=== PATIENT | female | born 1935 | race Caucasian/White ===

== ENCOUNTER 2016-08-30 23:03 | Inpatient (IN) | payer MEDICARE, BC ==
[~2016-08-30] VITALS: Ht 162.6 cm; Wt 59.1 kg
[~2016-08-30 23:03] MED LIST: CALTRATE-600600 MG PO; CHILDREN'S ASPI81 MG PO; GLUCOSAMINE & C1 CAP PO; LEVOTHROID88 MCG PO; MULTIPLE VITAMI1 TA1 PO; VITAMIN D31000 UNIT PO
[2016-08-31] VITALS (23 sets, daily range): BP systolic 98–147; BP diastolic 52–106; Ht 162.6 cm; Wt 59.1 kg
[2016-08-31 00:08] LABS: BASOPHILS 0.1 % (0.0-2.0); EOSINOPHILS 0 % (0-7); HEMATOCRIT 37.1 % (36.0-48.0); HEMOGLOBIN 12.2 g/dL (12-16); IMMATURE GRANULOCYTES 0.3 % (0-5); LYMPHOCYTES 6.9 % (15-50); MCH 30.3 pg (26.0-34.0); MCHC 32.9 g/dL (31.0-37.0); MCV 92.3 fL (80.0-100.0); MEAN PLATELET VOLUME 12.7 fL (7.4-10.4); NEUTROPHILS 86.7 % (40-80); PLATELET COUNT 178 10x3/uL (130-400); RBC 4.02 10x6/uL (4.00-5.40); RDW 14.7 % (11.5-14.5)
[2016-08-31 00:29] LABS: ANION GAP 15.3 mmol/L (8-16); CALCIUM 9.1 mg/dL (8.5-10.1); CARBON DIOXIDE 26.9 mmol/L (21.0-32.0); CREATININE - SERUM 0.9 mg/dL (0.6-1.3); POTASSIUM - SERUM 4.2 mmol/L (3.5-5.1); TROPONIN-I 0.033 ng/mL (0.000-0.060)
[2016-08-31] MEDS ORDERED: L-LYSINE500 M1 PO (03:23)
[2016-08-31] MEDS ORDERED: ASCORBIC ACID500 MG PO (03:23)
[2016-08-31] MEDS ORDERED: BIOTIN5 MG PO (03:23)
--- NOTE | 2016-08-31 13:02 | NUR ---
Is the patient Alert and Oriented? Yes 0 * How many steps to enter\exit or inside your home? 3 0 * [facility] IN [place], [place] 0 * Preadmission Environment Home with Family 0 * ADLs Independent 0 * Equipment None 0 * List name and contact numbers for known caregivers / representatives who currently or will assist patient after discharge: SPOUSE: JACINTA (H)[phone] (C) [phone] 0 * Community resources currently utilized None 0 * Additional services required to return to the preadmission environment? No 0 * Can the patient safely return to the preadmission environment? Yes 0 * Has this patient been hospitalized within the prior 30 days at any hospital? No 0 PATIENT IS AWAKE AND ALERT. SHE STATES SHE WAS INDEPENDENT IN ALL ADL'S PRIOR TO COMING TO THE HOSPITAL. PATIENT LIVES AT HOME WITH HE , JACINTA. HE WILL BE AVAILABLE TO DRIVE HER HOME AT DISCHARGE. HER PCP IS DR. AMAN MONTEJO IN [place]. SHE GETS HER MEDS FROM [facility] IN [place]. PATIENT DENIES USE OF ANY EQUIPMENT AND DENIES EVER HAVING HOME HEALTH. PATIENT STATES THERE ARE 3 STEPS TO ENTER HER HOME. NO DISCHARGE NEEDS IDENTIFIED AT THIS TIME.
[2016-08-31 15:16] LABS: CKMB 9.5 U/L (0.0-3.6); CREATINE KINASE 334 UL (21-215)
--- NOTE | 2016-08-31 19:00 | NUR ---
RECEIVED PATIENT IN BED WITH EYES OPEN, ASSESSMENT COMPLETED PER FLOWSHEET. AO X4, PLEASANT DEMEANOR. EYES PERRLA @ 3MM WITH BRISK RESPONSE, SCLERA IS WHITE. ORAL/NASAL MUCOSA IS MOIST AND INTACT, 4L 02 VIA NC. S1/S2 NOTED WITH PATIENT NSR W/ PVC ON TELEMETRY. BREATING IS SLIGHTLY LABORED AND FAST @ 24, LUNG SOUNDS ARE DIMINISHED THROUGHOUT ALL HARMON. ABDOMEN IS ROUND AND SOFT, BOWEL SOUNDS ACTIVE X4. FRAGA SECURED IN PLACE WITH 1500ML OF PALE YELLOW URINE NOTED IN COLLECTION BAG. FULL ROM ALL EXTREMITIES, ALL PULSES PALPABLE. CAR PINCHER/PEDAL STRENGTH EQUAL AND BILATERAL, NO WEAKNESS NOTED. 20G PIV L HAND, PATENT WITH FLUIDS INFUSING. PATIENT DENIES PAIN OR OTHER NEEDS AT THIS TIME, ALL VSS AND WILL CONTINUE TO MONITOR.
--- NOTE | 2016-08-31 21:00 | NUR ---
NO VISITORS AT THIS TIME, PATIENT RESTING IN BED WITH EYES CLOSED. NSR WITH OCCAISIONAL PVC'S NOTED ON TELEMETRY, RATE OF 81. BREATHING IS SLIGHTLY LABORED "BUT IMPROVING" ACCORDING TO PATIENT, DIMINISHED LUNG SOUNDS IN ALL LOBES. PATIENT STATES THAT FRAGA IS "UNCOMFORTABLE" DISCUSSED NEED WITH PATIENT AND REPOSITIONED, PATIENT STATES RELIEF. ALL VSS AND WILL CONTINUE TO MONITOR.
--- NOTE | 2016-08-31 22:58 | NUR ---
REASSESSMENT COMPLETE PER FLOWSHEET, PATIENT RESTING IN BED WITH EYES CLOSED. BREATHING IS SHALLOW WITH DIMINISHED LUNG SOUNDS THROUGHOUT ALL LOBES, PATIENT OXYGEN SAT IS 99% ON 4L VIA N/C. PATIENT IS NSR ON TELEMETRY WITH OCCAISIONAL PVC'S, RATE IS IRREGULAR. PATIENT DENIES PAIN OR OTHER NEEDS AT THIS TIME, ALL VSS AND WILL CONTINUE TO MONITOR.
[2016-09-01] VITALS (25 sets, daily range): BP systolic 81–120; BP diastolic 53–102
--- NOTE | 2016-09-01 01:00 | NUR ---
PATIENT RESTING IN BED WITH EYES CLOSED, BREATHING IS SLIGHTLY SHALLOW. PATIENT HR 89, NSR WITH PVC'S NOTED ON TELEMETRY. DENIES PAIN OR OTHER NEEDS AT THIS TIME, ALL VSS AND WILL CONTINUE TO MONITOR.
--- NOTE | 2016-09-01 03:01 | NUR ---
REASSESSMENT COMPLETE PER FLOWSHEET, PATIENT RESTING IN BED WITH EYES CLOSED. S1/S2 NOTED WITH PATIENT NSR WITH OCCAISIONAL PVC ON TELEMETRY, RHYTHM IS IRREGULAR. BREATHING IS SLIGHTLY SHALLOW, LUNG SOUNDS DIMINISHED IN ALL LOBES. PATIENT OXYGEN SAT 99% ON 4L VIA NC. PALE YELLOW URINE NOTED IN COLLECTION BAG, NO ERYTHEMA OR IRRITATION NOTED IN PERINEAL AREA. PATIENT DENIES PAIN OR OTHER NEEDS AT THIS TIME, ALL VSS AND WILL CONTNINUE TO MONITOR.
[2016-09-01 04:53] LABS: BASOPHILS 0.1 % (0.0-2.0); EOSINOPHILS 0 % (0-7); HEMATOCRIT 36.3 % (36.0-48.0); HEMOGLOBIN 12.1 g/dL (12-16); IMMATURE GRANULOCYTES 0.4 % (0-5); LYMPHOCYTES 9.9 % (15-50); MCHC 33.3 g/dL (31.0-37.0); MEAN PLATELET VOLUME 12.9 fL (7.4-10.4); MONOCYTES 9.2 % (2-11); NEUTROPHILS 80.4 % (40-80); PLATELET COUNT 175 10x3/uL (130-400); RBC 4.03 10x6/uL (4.00-5.40); RDW 14.7 % (11.5-14.5)
[2016-09-01 05:48] LABS: ANION GAP 11.1 mmol/L (8-16); CARBON DIOXIDE 29.9 mmol/L (21.0-32.0)
[2016-09-01 05:49] LABS: MCV 90.1 fL (80.0-100.0)
--- NOTE | 2016-09-01 06:00 | NUR ---
POTASSIUM VALUE 3.0, 40 MEQ GIVEN PO PER PROTOCOL. WILL RECHECK IN 4 HRS AND WITH AM LAB.
--- NOTE | 2016-09-01 07:00 | NUR ---
PT CO FRAGA IRRITATING HER. FRAGA DCD.
--- NOTE | 2016-09-01 09:13 | NUR ---
Nutrition follow-up: Diet: low sodium PO intake poor at this time Labs reviewed Wt: 146# RDN will order Ensure with meals Following.
--- NOTE | 2016-09-01 12:33 | NUR ---
PIV RESITED TO RIGHT FOREARM, 20G X1 ATTEMPT. BLOOD RETURN AND FLUSHES EASILY.
--- NOTE | 2016-09-01 19:00 | NUR ---
RECEIVED PATIENT IN BED WITH EYES OPEN AND AT BEDSIDE, ASSESSMENT COMPLETED PER FLOWSHEET. PATIENT IS AO X4, DEMEANOR IS PLEASANT. EYES PERRLA @ 3MM WITH BRISK RESPONSE, SCLERA IS WHITE. ORAL NASAL MUCOSA IS DRY AND INTACT, PATIENT ON 4L O2 VIA NC WITH HUMIDIFIER ATTATCHED. S1/S2 NOTED WITH PATIENT NSR ON TELEMETRY WITH PVC'S, RATE IS IRREGULAR. LUNG SOUNDS ARE CLEAR BILATERAL UPPER WITH DIMINISHED LOWER, BREATHING IS EVEN BUT PATIENT BECOMES SOB UPON EXERTION. ABDOMEN IS SOFT AND ROUND, NON-TENDER TO PALPATION. PATIENT FRAGA REMOVED 09/01, PATIENT AMBULATES ON OWN TO BEDSIDE COMMODE. FULL ROM ALL EXTREMITIES WITH NO WEAKNESS NOTED, BULK DELIVERY DRIVER/PEDAL STRENGTH IS EQUAL AND BILATERAL. 20G PIV L UPPER ARM, PATENT AND SALINE LOCKED. ALL PULSES PALPABLE AND VSS. PATIENT DENIES PAIN OR OTHER NEEDS AT THIS TIME, WILL CONTINUE TO MONITOR.
--- NOTE | 2016-09-01 21:00 | NUR ---
NO VISITORS AT THIS TIME, PATIENT USED BEDSIDE COMMODE WITOUT DIFFICULTY OR ASSISSTANCE. 650ML CLEAR YELLOW URINE NOTED MIXED WITH SMALL FORMED STOOLS. PATIENT DENIES PAIN OR OTHER NEEDS AT THIS TIME, ALL VSS AND WILL CONTINUE TO MONITOR.
--- NOTE | 2016-09-01 23:00 | NUR ---
REASSESSMENT COMPLETE PER FLOWSHEET, PATIENT RESTING IN BED WITH EYES CLOSED. BREATHING IS EVEN AND UNLABORED, LUNG SOUNDS CLEAR BILATERAL UPPER WITH SLIGHTLY DIMINISHED LOWER. PATIENT IS NSR WITH PVC'S NOTED ON TELEMETRY, RATE IS IRREGULAR. PATIENT DENIES PAIN OR OTHER NEEDS AT THIS TIME, ALL VSS AND WILL CONTINUE TO MONITOR.
[2016-09-02] VITALS (12 sets, daily range): BP systolic 88–110; BP diastolic 53–90
--- NOTE | 2016-09-02 03:02 | NUR ---
REASSESSMENT COMPLETE PER FLOWSHEET, PATIENT RESTING IN BED WITH EYES OPEN. BREATHING IS EVEN AND UNLABORED, OXYGEN SAT IS 98% ON 4L VIA NC. NSR WITH OCCASIONAL PVC'S ON TELEMETRY, RATE IS IRREGULAR. PATIENT STATES SHE "FEELS BETTER THAN SHE HAS IN DAYS", AND THAT "BREATHING IS MUCH EASIER".DENIES PAIN OR OTHER NEEDS AT THIS TIME, ALL VSS AND WILL CONTINUE TO MONITOR.
--- NOTE | 2016-09-02 03:08 | NUR ---
PATIENT AMBULATED TO BEDSIDE COMMODE AND BACK TO BED WITHOUT ASSISTANCE. 520ML OF PALE YELLOW URINE NOTED IN COLLECTION BUCKET. ALL VSS AND NO FURTHER NEEDS AT THIS TIME, WILL CONTINUE TO MONITOR.
[2016-09-02 03:27] LABS: BASOPHILS 0.1 % (0.0-2.0); EOSINOPHILS 1.6 % (0-7); HEMATOCRIT 37.6 % (36.0-48.0); HEMOGLOBIN 12.2 g/dL (12-16); IMMATURE GRANULOCYTES 0.5 % (0-5); LYMPHOCYTES 15.4 % (15-50); MCH 29.8 pg (26.0-34.0); MCHC 32.4 g/dL (31.0-37.0); MCV 91.9 fL (80.0-100.0); MEAN PLATELET VOLUME 12.9 fL (7.4-10.4); MONOCYTES 12.1 % (2-11); NEUTROPHILS 70.3 % (40-80); PLATELET COUNT 175 10x3/uL (130-400); RBC 4.09 10x6/uL (4.00-5.40); RDW 14.5 % (11.5-14.5); WBC 8.6 10x3/uL (4.8-10.8)
[2016-09-02 03:33] LABS: ANION GAP 9.2 mmol/L (8-16); CALCIUM 8.3 mg/dL (8.5-10.1); CARBON DIOXIDE 32.3 mmol/L (21.0-32.0)
[2016-09-02 03:47] LABS: POTASSIUM - SERUM 3.5 mmol/L (3.5-5.1)
--- NOTE | 2016-09-02 05:00 | NUR ---
PATIENT RESTING IN BED WITH EYES CLOSED, BREATHING IS EVEN AND UNLABORED. PATIENT DENIES PAIN OR OTHER NEEDS AT THIS TIME, ALL VSS AND WILL CONTINUE TO MONITOR.
--- NOTE | 2016-09-02 07:00 | NUR ---
ASSESSMENT PER FLOWSHEET.
--- NOTE | 2016-09-02 10:56 | NUR ---
REPORT CALLED TO MED 2.
--- NOTE | 2016-09-02 11:35 | NUR ---
TRANSFER TO FLOOR.
--- NOTE | 2016-09-02 11:43 | NUR ---
REC'D PT FROM ICU. PT ARRIVE VIA W/C. ACCOMPANIED BY SPOUSE. PT A/O. WEARING O2 AT 2LITERS VIA NC. DENIES SOB. 22G IV TO LEFT HAND NOTED. NURSE STATES WAS RE-SITED TODAY, BEFORE TRANSFER. PT SKING WARM AND DRY WITHOUT SORES OR REDNESS. NO EDEMA TO LE NOTED. ORIENTED PT TO ROOM. HAT PLACED IN BATHROOM TO MONITOR PT'S URINE OUTPUT. PT SITTING UP IN CHAIR AT BED SIDE. CALL LIGHT PLACED WITH IN REACH. DENIES NEEDS AT THIS TIME. WILL CONT. TO MONITOR.
--- NOTE | 2016-09-02 12:34 | NUR ---
PT SITTING UP IN CHAIR AT BEDSIDE. VISITING WITH FAMILY. A/O. NO DISTRESS NOTED. CALL LIGHT WITH IN REACH. WILL CONT. TO MONITOR.
--- NOTE | 2016-09-02 13:59 | EC ---
PATIENT:RAUL LOCO DATE OF SERVICE: 08/31/16 SEX: F MEDICAL RECORD: [id number] DATE OF : 37 LOCATION:D.M2 D.213 AGE OF PATIENT: 80 ADMISSION DATE: 08/31/16 REFERRING PHYSICIAN: INTERPRETING PHYSICIAN: [place] HSU MD ECHOCARDIOGRAM REPORT ECHO CHARGES 4 ECHO COMPLETE CLINICAL DIAGNOSIS: ELEVATED BNP/PROTIME ECHOCARDIOGRAPHIC MEASUREMENTS (adult normal given) AC root (d.<3.7cm) 3.1 LV Septum d (<1.2 cm> 1.2 Valve Excursion 1.7 LV Septum (systole) 1.4 Left Atria (s.<4.0cm> 3.3 LVPW d(<1.2cm) 1.3 RV (d.<2.3cm) 3.9 LVPW (sytole) 1.5 LV diastole(<5.6CM) 6.2 MV E-F(>70mm/sec) LV systole 5.1 LVOT Diameter 1.6 MV exc.(>10mm) 1.1 Est.ejection fraction (50-75%) Pericardial Effusion N DOPPLER: LVIT A 61.0 E 117 LA RVSP 42 LVOT 77 AOP1/2T 433 Asc. Ao 161 RVOT 69 RA PA 109 AV Gradient Peak 10.39 AV Mean 5.41 AV Area 1.0 MV Gradient Peak 9.67 MV Mean 2.90 MV Area COMMENTS: Marketing Manager: Mariana ROMAN Decision Analyst:Jill Hsu TAPE# PACS DATE OF SERVICE: 08/31/2016 Echocardiogram FINDINGS: 1. Left ventricular chamber size is dilated. Left ventricular systolic function is markedly reduced, overall ejection fraction estimated 20%. 2. Left atrium is enlarged at 4.5 cm. Right atrium and right ventricular chamber sizes are as well mildly dilated. 3. Valvular structures have normal structure and motion. ECHOCARDIOGRAM REPORT [id number] RAUL LOCO 4. Doppler interrogation reveals mild aortic insufficiency, moderate to severe mitral regurgitation, moderate to severe tricuspid regurgitation, no other valvular insufficiency or stenosis. Pulmonary systolic pressure estimated at 42 mmHg. 5. No evidence of pericardial effusion or left ventricular thrombus. TRANSINT:[id number] Voice Confirmation ID: [id number] DOCUMENT ID: [id number] AR HSU MD at 1359 CC: [id number] DICTATION DATE: 09/01/16928 BANKING ANALYST: 09/01/1654 ADM IN [facility] [address] [id number]
--- NOTE | 2016-09-02 14:00 | NUR ---
PT RESTING BACK IN BED. SPOUSE IN ROOM. REQUEST WATER. PT SLIGHTLY SOB, BUT REPORTS SHE AMBULATED TO RESTROOM WITHOUT O2 ON. NURSE PROVIDED PT WITH LONGER NC THAT WILL REACH TO RESTROOM. PT DENIES OTHER NEEDS AT THIS TIME. CALL LIGHT WITH IN REACH. WILL CONT. TO MONITOR.
--- NOTE | 2016-09-02 15:17 | NUR ---
PT LAYING IN BED VISITING WITH FRIEND. NO DISTRESS NOTED. DENIES NEEDS AT THIS TIME. CALL LIGHT WITH IN REACH. WILL CONT. TO MONITOR.
--- NOTE | 2016-09-02 19:47 | NUR ---
RESUMED CARE OF PT, LYING IN BED RESPIRATIONS EVEN AND UNLABORED ON 2LPM VIA NC. FAMILY AT BEDSIDE AND PLAN OF CARE DISCUSSED. LEFT HAND SALINE LOCKED. CALL LIGHT IN REACH. WILL CONTINUE TO MONITOR. SEE NURSE ASSESSMENT.
[2016-09-03 00:47] VITALS: BP 94/61
--- NOTE | 2016-09-03 00:48 | NUR ---
LYING IN BED WITH EYES CLOSED, CALL LIGHT IN REACH. WILL CONTINUE TO MONITOR.
[2016-09-03 01:42] VITALS: BP 109/59
--- NOTE | 2016-09-03 01:44 | NUR ---
LASIX 40MG IVP GIVEN, ASSESSED BP BEFORE GIVEN 109/59. WILL CONTINUE TO MONITOR.
[2016-09-03 04:56] VITALS: BP 88/71
[2016-09-03 05:14] LABS: BASOPHILS 0.4 % (0.0-2.0); HEMATOCRIT 39.4 % (36.0-48.0); HEMOGLOBIN 12.8 g/dL (12-16); IMMATURE GRANULOCYTES 0.4 % (0-5); LYMPHOCYTES 13.7 % (15-50); MCH 29.8 pg (26.0-34.0); MCHC 32.5 g/dL (31.0-37.0); MCV 91.6 fL (80.0-100.0); MEAN PLATELET VOLUME 12.2 fL (7.4-10.4); MONOCYTES 13.2 % (2-11); NEUTROPHILS 69.3 % (40-80); PLATELET COUNT 168 10x3/uL (130-400); RDW 14.8 % (11.5-14.5); WBC 8.1 10x3/uL (4.8-10.8)
[2016-09-03 05:26] LABS: ANION GAP 9.4 mmol/L (8-16); CALCIUM 8.6 mg/dL (8.5-10.1); CARBON DIOXIDE 32.1 mmol/L (21.0-32.0); POTASSIUM - SERUM 3.5 mmol/L (3.5-5.1)
--- NOTE | 2016-09-03 07:39 | NUR ---
ASSESSMENT DONE. PT SLEEPING. EASILY AWAKEN. DENIES SOB. STATES SHE IS FEELING MUCH BETTER AND HOPES TO GO HOME TODAY. LUNG SOUNDS CLEAR BILATERALLY. NO EDEMA IN LE NOTED. PT REQUEST COFFEE. CALL LIGHT WITH IN REACH. WILL CONT. TO MONITOR.
[2016-09-03 08:26] VITALS: BP 109/76
--- NOTE | 2016-09-03 09:44 | NUR ---
PT SITTING UP IN CHAIR AT BEDSIDE. IV ANTIBIOTIC INFUSING. SPOUSE IN ROOM. SUBCONTRACT MANAGER ASSISTED PT TO THE RESTROOM. WILL CONT. TO MONITOR.
--- NOTE | 2016-09-03 09:47 | NUR ---
UP IN CHAIR WITH CALL LIGHT IN REACH. IV PATENT. NO NEEDS VOICED. WILL CONT. PLAN OF CARE.
[2016-09-03 12:10] VITALS: BP 106/61
--- NOTE | 2016-09-03 12:14 | NUR ---
Patient Name: KAREN MARINELLI Encounter No: [id number] : 08-30-1964 Primary Insurance: MEDICARE A & B Anticipated DC Date: 09-03-2016 Planned Disposition: Home DCP follow-up note: CM MET WITH PT IN ROOM TO DISCUSS DISCHARGE NEEDS AND PLANNING. CM DISCUSSED AVAILABILITY OF HOME HEALTH, REHAB SERVICES AND MEDICAL EQUIPMENT. PT WOULD STILL LIKE HOME HEALTH; CM SPOKE TO DR. SALVADOR, PT IS NO HAVING TAXING EFFORT TO LEAVE HOME AND HAS NO SKILLED NEED. CM EXPLAINED THIS TO PT WHO REPORTS SHE IS NO HOME CONFINED, NOR WILL SHE BE STAYING AT HOME, THAT THE DOCTOR KNOWS SHE CAN TAKE CARE OF HERSELF AND THANKED CM FOR TRYING. PT REPORTS HER BOYFRIEND TO TRANSPORT HOME AT DISCHARGE. IMPORTANT MESSAGE FROM MEDICARE PROVIDED AND EXPLAINED. CM PROVIDED PATIENT PATHWAYS DISCHARGE PLANNING BOOKLET, ACKNOWLEDGEMENT FORM PLACED IN CHART. Andrew Peace, CASE MANAGEMENT
--- NOTE | 2016-09-03 12:39 | CN ---
PATIENT NAME:RAUL LOCO MEDICAL RECORD: [id number] : 37 LOCATION:D.M2 D.2131 ADMIT DATE: 08/31/16 ACCOUNT: [id number] CONSULTING PHYSICIAN: MELO PACHECO MD REFERRING PHYSICIAN: VARSHA VELEZ MD DATE OF CONSULTATION: 09/01/2016 CONSULT REQUESTING PHYSICIAN: Varsha Velez MD. REASON FOR CONSULTATION: Pulmonary edema, bilateral pleural effusion, possible underlying pneumonia. HISTORY OF PRESENT ILLNESS: Ms. Loco is a 80-year-old female who was in pretty good health. A year ago, she has non-Hodgkin lymphoma for which she got chemotherapy. Since April, she has worsening shortness of breath with exertion. For the last few days. she has orthopnea and PND and she has swelling of the lower extremity. She was given some steroid injections as well as some albuterol inhaler without any benefit. She cough without much sputum production. Denies any fever and chill. There are no night sweats. REVIEW OF SYSTEMS: CONSTITUTIONAL: No fever and chills. HEENT: No sinus congestion. RESPIRATORY: As in history of present illness. CARDIOVASCULAR: Negative. GASTROINTESTINAL: Negative. GENITOURINARY: Negative. Other review of the systems is negative. PAST MEDICAL HISTORY: 1. Non-Hodgkin lymphoma. 2. Hypothyroidism. 3. Congestive heart failure. PAST SURGICAL HISTORY: 1. She has a knee surgery. 2. T&A. 3. Hysterectomy. 4. Breast biopsy. 5. Bunionectomy. ALLERGIES: 1. SHE IS ALLERGIC TO PREDNISONE, SHE BECOMES VERY SEVERE HYPERACTIVE. 2. CODEINE. PRESENT MEDICATIONS: She is on Lasix, Levaquin was started this morning, levothyroxine and her other medication is reviewed. PERSONAL AND SOCIAL HISTORY: The patient never smoked. She is a nondrinker. FAMILY HISTORY: Her parents had neurological disorder. PHYSICAL EXAMINATION: GENERAL: Now, the patient is lying comfortably in bed. She is not in acute respiratory distress. CONSULT REPORT [id number] RAUL LOCO VITAL SIGNS: The blood pressure is 120/84, pulse is 92, respirations 18, temperature is 98.2, SPO2 is 97% on 4 liters nasal cannula. HEENT: Conjunctivae are pink. Sclerae nonicteric. NECK: Supple. There is elevated JVD. CHEST: There are decreased breath sounds at the bases. There are bilateral crackles. HEART: Rate and rhythm regular, normal sounds with grade II/ systolic murmur. ABDOMEN: Soft, bowel sounds present. No hepatosplenomegaly. RECTAL: Deferred. EXTREMITIES: No cyanosis, no clubbing, no pedal edema. SKIN: Warm, normal turgor. CENTRAL NERVOUS SYSTEM: The patient is awake and alert. There is no obvious cranial nerve abnormality. The gait was not tested. IMAGING: Chest radiograph, there is bilateral pleural effusion. There is increased interstitial marking, very consistent with pulmonary edema and there are bibasilar atelectasis, possible infiltrate. OTHER LABORATORY DATA: CBC: WBC 11,000, hemoglobin 12.1, hematocrit 36.3, the platelet count is 175. Chemistry: Sodium 132, potassium is 3, BUN is 27, creatinine is 1, glucose is 90. The BNP was 29,000. IMPRESSION: 1. Acute hypoxic respiratory failure. 2. Pulmonary edema. 3. Bilateral pleural effusion. 4. Bibasilar atelectasis secondary to pleural effusion and possible pneumonia. 5. Leukocytosis. 6. Congestive heart failure consistent with systolic dysfunction with ejection fraction of 20%. 7. Hypokalemia. RECOMMENDATION: 1. Continue Lasix. 2. Continue Levaquin empirically, follow labs and chest radiograph, replace potassium electrolyte protocol. If the pleural effusion is not improving, we might need to consider thoracentesis. Dr. Velez, once again thanks for involving me in the care of Ms. Loco. The critical care time was 40 minutes. TRANSINT:[id number] Voice Confirmation ID: [id number] DOCUMENT ID: [id number] MELO PACHECO MD at 1239 CC: VARSHA VELEZ MD [id number] DICTATION DATE: 09/01/16 1154 TEAM LEADER SURGERY: 09/01/16 1231 ADM IN [place] [id number] [place] [id number]
--- NOTE | 2016-09-03 13:32 | NUR ---
PT O2 SAT 99% ON 2L O2 VIA NC. 98% ON RA. PT'S O2 SAT AMBULATING ON RA (WHILE TALKING) DROPPED TO 91%. PT WALKED THE ENTIRE UNIT. DENIES DIZZINESS. DID GET SLIGHTLY SOB.
[2016-09-03] MEDS ORDERED: LEVAQUIN750 MG PO ×2 (13:35→13:38)
[2016-09-03] MEDS ORDERED: COREG 3.1253.125 MG PO ×2 (13:37→14:00)
[2016-09-03] MEDS ORDERED: LISINOPRIL5 MG PO ×2 (13:37→14:00)
[2016-09-03] MEDS ORDERED: LASIX40 MG PO ×2 (13:37→14:00)
[2016-09-03] MEDS ORDERED: FLORAJEN3 CAPS460 MG PO (13:38)
[2016-09-03] MEDS ORDERED: K-DUR20 MEQ PO ×2 (13:39→14:00)
--- NOTE | 2016-09-03 14:01 | NUR ---
Patient Name: RAUL LOCO Encounter No: [id number] : 1935 Primary Insurance: MEDICARE A & B Anticipated DC Date: 09-03-2016 Planned Disposition: Home DCP follow-up note: CM MET WITH PT IN ROOM TO DISCUSS DISCHARGE NEEDS AND PLANNING. CM DISCUSSED AVAILABILITY OF HOME HEALTH, REHAB SERVICES AND MEDICAL EQUIPMENT. PT DENIES DISCHARGE NEEDS. SPOUSE TO TRANSPORT HOME AT DISCHARGE. IMPORTANT MESSAGE FROM MEDICARE PROVIDED AND EXPLAINED. Andrew Peace, case management
--- NOTE | 2016-09-03 15:58 | NUR ---
D/C INSTRUCTIONS GIVEN TO PT. VERBALIZED UNDERSTANDING. SCRIPTS GIVEN TO PT ALSO. IV REMOVED. PT AWAITING TRANSPORTATION HOME.
--- NOTE | 2016-09-03 16:22 | NUR ---
PT D/C'D HOME VIA PRIVATE VEHICLE. NURSE ASSISTED PT TO FRONT ENTRANCE VIA W/C.
[2016-10-29] MEDS ORDERED: COREG 3.1253.125 MG PO (14:58)
== END 2016-09-03 16:20 | disposition home or self-care (01) | DRG 291 ==
LOC: D.ER 23:03 → D.ICU 08-31 02:24 → D.M2 08-31 02:24
PROVIDERS: Emergency Medicine Emergency Medical Services; Internal Medicine Interventional Cardiology; ADMIT Emergency Medicine
DX: I50.21 Acute systolic (congestive) heart failure (principal); J96.01 Acute respiratory failure with hypoxia; J18.1 Lobar pneumonia, unspecified organism; E87.1 Hypo-osmolality and hyponatremia; J98.11 Atelectasis; C85.90 Non-Hodgkin lymphoma, unspecified, unspecified site; E03.9 Hypothyroidism, unspecified; E87.6 Hypokalemia

== ENCOUNTER → 2016-10-13 10:53 | Outpatient (CLI) | payer MEDICARE, BC ==
[2016-08-31 13:34] VITALS: BMI 25.2
[~2016-10-13 10:53] MED LIST changes: +ASCORBIC ACID500 MG PO; +BIOTIN5 MG PO; +COREG 3.1253.125 MG PO; +FLORAJEN3 CAPS460 MG PO; +FUROSEMIDE40 MG PO; +K-DUR20 MEQ PO; +L-LYSINE500 M1 PO; +LASIX40 MG PO; +LEVAQUIN750 MG PO; +LISINOPRIL5 MG PO; +POTASSIUM99 M1 PO; +SYNTHROID50 MCG PO
== END | disposition home or self-care (01) ==
LOC: D.RT 10:53
DX: R06.00 Dyspnea, unspecified (principal)

== ENCOUNTER 2016-11-01 07:05 | Day surgery (SDC) | payer MEDICARE, BC ==
[~2016-11-01] VITALS: Ht 162.6 cm; Wt 57.6 kg
--- NOTE | ~2016-11-01 | HP ---
PATIENT: RAUL WILLSON MEDICAL RECORD: [id number] ACCOUNT: [id number] LOCATION:ROSLYN : 37 ADMISSION DATE: 11/01/16 HISTORY AND PHYSICAL EXAMINATION Preoperative History and Physical HISTORY OF PRESENT ILLNESS: Ms. Willson is a 80-year-old female, who I did a right cervical node biopsy in April 2015. At that time, she was diagnosed with a large B-cell lymphoma. She is treated subsequently with chemotherapy by Gal Olguin and she has done well for quite some time; however, she recently had a positive PET scan and was found to have an enlarged lymph node, left posterior triangle in that area. She is being admitted for cervical node biopsy. PAST MEDICAL HISTORY: Includes large B cell lymphoma and hypothyroidism. PAST SURGICAL HISTORY: Includes tonsillectomy, breast biopsy, hysterectomy, and hammertoe surgery. CURRENT MEDICATIONS: Levothyroxine, aspirin, and vitamin D3. ALLERGIES: CODEINE. PHYSICAL EXAMINATION: GENERAL: She is healthy-appearing female. She is alert and oriented. Good voice. FACE: Normal, symmetric. No lesions. EYES: Sclerae and conjunctivae are normal. EARS: Canals and TMs are normal. NOSE: No mass, polyps or drainage. ORAL CAVITY AND OROPHARYNX: No lesions or masses. Tongue protrudes midline. No trismus. NECK: She has a solitary 1 cm left posterior triangle node, may be centimeter and a half. CHEST: Clear. CARDIOVASCULAR: Regular rate and rhythm, no murmur. EXTREMITIES: Normal. IMPRESSION: Left cervical adenopathy. History of large B cell lymphoma. PLAN: Left cervical node biopsy. TRANSINT:[id number] Voice Confirmation ID: [id number] DOCUMENT ID: [id number] BALJEET HAQUE MD CC: [id number] DICTATION DATE: 10/28/16 152 MEDICAL ASSISTANT FLOAT: 10/28/16 [id number] [place] [address]
--- NOTE | ~2016-11-01 | OP ---
PATIENT NAME: RAUL LOCO MEDICAL RECORD: [id number] :37 LOCATION:D.OPS ADMISSION DATE: SURGEON: MARCIAL HAQUE MD DATE OF OPERATION: 11/01/2016 PREOPERATIVE DIAGNOSIS: Cervical adenopathy. POSTOPERATIVE DIAGNOSIS: Cervical adenopathy. PROCEDURE: Left cervical node biopsy. SURGEON: Marcial Haque M.D. ANESTHESIA: General orotracheal. BLOOD LOSS: Less than 1 cc. SPECIMENS: Single posterior triangle node from the left side of the neck, fresh in saline. COMPLICATIONS: None. DISPOSITION: Recovery stable. DESCRIPTION OF PROCEDURE: She is brought to the operating room and placed in supine position, sedated and intubated by anesthesia. Head was turned to the right. The lymph node was palpated. This skin overlying was cleaned with alcohol. The area was injected with less than 1 cc of 1% lidocaine with 1:100,000 epinephrine. Left neck was prepped and draped in the usual sterile fashion. A horizontal skin incision was made with a 15 blade less than 2 cm long. This was carefully taken down through the skin. Blunt dissection with a hemostat exposed the node to avoid any injury to the spinal accessory nerve. The lymph node was lifted up with a clamp and then dissected out from the surrounding fascia. It was sent intact and fresh in saline. Some small amount of bleeding from the skin edges were cauterized with the spatula tip cautery. The area was clean and dry with no bleeding. The wound was closed with interrupted subcutaneous 5-0 Vicryl and the skin edges were tightly approximated and Steri-Strips and Mastisol were applied and she was awakened, extubated, and transported to recovery in good condition. No complications. TRANSINT:[id number] Voice Confirmation ID: [id number] DOCUMENT ID: [id number] MARCIAL HAQUE MD CC: [id number] DICTATION DATE: 11/01/16 1125 PUNCHING MACHINE OPERATOR: 11/01/16 15[address] [place] [address]
[~2016-11-01 07:05] MED LIST changes: -FUROSEMIDE40 MG PO; -POTASSIUM99 M1 PO; -SYNTHROID50 MCG PO
[2016-11-01 08:29] LABS: BASOPHILS 0.9 % (0.0-2.0); EOSINOPHILS 2.3 % (0-7); HEMATOCRIT 38.1 % (36.0-48.0); HEMOGLOBIN 12.4 g/dL (12-16); IMMATURE GRANULOCYTES 0.2 % (0-5); LYMPHOCYTES 16.6 % (15-50); MCH 30.4 pg (26.0-34.0); MCHC 32.5 g/dL (31.0-37.0); MCV 93.4 fL (80.0-100.0); MEAN PLATELET VOLUME 12.7 fL (7.4-10.4); MONOCYTES 11.1 % (2-11); NEUTROPHILS 68.9 % (40-80); PLATELET COUNT 141 10x3/uL (130-400); RBC 4.08 10x6/uL (4.00-5.40); RDW 14.4 % (11.5-14.5); WBC 5.6 10x3/uL (4.8-10.8)
[2016-11-01 08:57] VITALS: BP 129/77; Ht 162.6 cm; Wt 57.6 kg
[2016-11-01] MEDS ORDERED: SYNTHROID50 MCG PO (09:00)
[2016-11-01] MEDS ORDERED: FUROSEMIDE40 MG PO (09:01)
[2016-11-01] MEDS ORDERED: POTASSIUM99 M1 PO (09:02)
[2016-11-01 09:06] LABS: ANION GAP 13.3 mmol/L (8-16); CALCIUM 8.5 mg/dL (8.5-10.1); CARBON DIOXIDE 25.1 mmol/L (21.0-32.0); CREATININE - SERUM 0.9 mg/dL (0.6-1.3); POTASSIUM - SERUM 4.4 mmol/L (3.5-5.1)
[2016-11-01 10:25] LABS: APTT 25.8 SECONDS (22.8-39.4); INR 1.03 (0.85-1.17); PROTIME 13.4 SECONDS (11.6-15.0)
--- NOTE | 2016-11-01 11:53 | NUR ---
1145-RECEIVED PT FROM PACU AWAKE AND ALERT VSS. LEFT NECK WITH STERI STRIPS WITH MILD BLEEDING SOAKED THROUGH STERI STRIPS. EVEN NONLABORED RESP EFFORT POX 98% ON ROOM AIR. AT BEDSIDE WILL CONTINUE TO MONITOR
--- NOTE | 2016-11-01 15:31 | NUR ---
1215-PT CONTINUES TO DO WELL, STERI STRIPS INTACT AND OOZING OF BLODD HAS STOPPED. PT TOLERATED COFFEE WELL 1220-IV DISCONTINUED WITH CATHETER INTACT. PT GETTING UP AND DRESSED TO BATHROOM AND VOIDED 1220-DISCHARGED INSTRUCTIONS GIVEN AND WENT OVER. COPY HANDED TO PATIENT. PT STATES UNDERSTANDING AND DENIES ANY NEEDS OR CONCERNS AT THIS TIME. PT DISCHARGED HOME IN STABLE CONDITION PT ESCORTED OUT VIA WHEELCHAIR WITH TO DRIVE HOME IN STABLE CONDITION
== END 2016-11-01 12:40 | disposition home or self-care (01) ==
LOC: D.OPS 07:05 → D.PAN 09:30 → D.OPS 09:30
PROVIDERS: Anesthesiology
DX: C85.81 Other specified types of non-Hodgkin lymphoma, lymph nodes of head, face, and neck (principal)

== ENCOUNTER 2017-08-15 08:36 | Day surgery (SDC) | payer MEDICARE, BC ==
[~2017-08-15] VITALS: Ht 162.6 cm; Wt 56.7 kg
--- NOTE | ~2017-08-15 | OP ---
PATIENT NAME: RAUL LOCO MEDICAL RECORD: [id number] :37 LOCATION:D.OPS ADMISSION DATE: SURGEON: MARCIAL HAQUE MD DATE OF OPERATION: 08/15/2017 PREOPERATIVE DIAGNOSES: Cervical adenopathy and history of lymphoma. POSTOPERATIVE DIAGNOSES: Cervical adenopathy and history of lymphoma. PROCEDURE: Left cervical node biopsy. SURGEON: Marcial Haque MD ANESTHESIA: General LMA. SPECIMENS: Left cervical nodes sent fresh to pathology. DRAINS: None. COMPLICATIONS: None. DISPOSITION: Recovery stable. DESCRIPTION OF PROCEDURE: She was brought to the operating room and placed in supine position, sedated and intubated by anesthesia. Head was turned to the right and the left neck was prepped and draped, injected with 0.5 cc of 1% lidocaine with 1:100,000 epinephrine. Upper posterior cervical node was easily accessible and palpable horizontal incision was made with a 15 blade. This was taken down through the skin and then bluntly dissected out with a tonsil clamp exposing the lymph node, it was dissected out from surrounding tissue. There was one larger node about a centimeter and a half in size and one small node about 8-mm in size that were sent There was really no bleeding. The wound was irrigated, rinsed out, was closed with interrupted subcutaneous 5-0 Vicryl. Skin was closed in Steri-Strips and Mastisol were applied. Specimen was sent fresh to path to exam and make sure there was adequate viable specimen for diagnosis and flow. She was awakened, extubated, and transported to recovery in good condition. No complications. TRANSINT:[id number] Voice Confirmation ID: [id number] DOCUMENT ID: [id number] MARCIAL HAQUE MD at 1458 CC: [id number] DICTATION DATE: 08/15/17 1337 CHIEF CONTRACT OFFICER: 08/15/17 2042 [facility] 08/15/17 [address] [id number]
--- NOTE | ~2017-08-15 | HP ---
PATIENT: RAUL WILLSON MEDICAL RECORD: [id number] ACCOUNT: [id number] LOCATION:NARAYAN : 36 ADMISSION DATE: 08/15/17 HISTORY AND PHYSICAL EXAMINATION HISTORY OF PRESENT ILLNESS: Ms. Willson is an 81-year-old female. She has a history of diffuse large B-cell lymphoma treated by Dr. Olguin. She has been doing well for the past couple of years, but redeveloped some swelling in her left eyelid as well as left cervical adenopathy. She is being admitted for cervical node biopsy. PAST MEDICAL HISTORY: Includes hypothyroidism. PAST SURGICAL HISTORY: Includes tonsillectomy, breast biopsy times 2, hysterectomy, knee scope, hammertoe surgery, right foot surgery, and cervical node biopsy back in 2014. CURRENT MEDICATIONS: Synthroid, aspirin. ALLERGIES: CODEINE. PHYSICAL EXAMINATION: GENERAL: She is healthy-appearing. Interacts normally. She has a normal voice. FACE: Normal, symmetric, except for the left eyelid. EYES: Her sclerae and conjunctiva of her eyes are normal. Really it feels like the lacrimal gland itself is normal, it does not feel enlarged, but she has got not a discrete mass, but thickening and fullness of the left eyelid. EARS: Normal. NOSE: No masses, polyps, or drainage. ORAL CAVITY AND OROPHARYNX: Tongue which is midline. Pharynx is normal. NECK: She has got some posterior left cervical adenopathy and some supraclavicular adenopathy on the left side that is very suspicious. CHEST: Clear. CARDIOVASCULAR: Regular rate and rhythm, no murmur. EXTREMITIES: Normal. IMPRESSION: Cervical adenopathy. History of B-cell lymphoma. PLAN: Cervical node biopsy. TRANSINT:[id number] Voice Confirmation ID: [id number] DOCUMENT ID: [id number] BALJEET HAQUE MD at 1458 CC: [id number] DICTATION DATE: 08/12/17 1034 PIPE COVERER: 08/12/17 1211 [facility] 08/15/17 [facility] [address] [place] [address]
[~2017-08-15 08:36] MED LIST changes: +COREG6.25 MG PO; +FUROSEMIDE40 MG PO; +POTASSIUM99 M1 PO; +SYNTHROID88 MCG PO
[2017-08-15] MEDS ORDERED: LISINOPRIL2.5 MG PO (09:43)
[2017-08-15] MEDS ORDERED: BENADRYL25 MG PO (09:45)
[2017-08-15] MEDS ORDERED: BIOTIN5 MG PO (09:47)
[2017-08-15 10:24] VITALS: BP 118/64; Ht 162.6 cm; Wt 56.7 kg
[2017-08-15 10:46] LABS: CALC OSMOLALITY 275 mosm/kg (275-300); CARBON DIOXIDE 25.1 mmol/L (21.0-32.0); CHLORIDE - SERUM 102 mmol/L (98-107); CREATININE - SERUM 0.7 mg/dL (0.6-1.3); GLUCOSE 90 mg/dL (74-106); POTASSIUM - SERUM 4.8 mmol/L (3.5-5.1); SODIUM 138 mmol/L (136-145); UREA NITROGEN 13 mg/dL (7-18); eGFR NON AFRICAN AMERICAN 85 mL/min (90-120)
[2017-08-15 10:50] LABS: HEMATOCRIT 39.3 % (36.0-48.0); HEMOGLOBIN 13.4 g/dL (12-16); LYMPHOCYTES 18.6 % (15-50); MCH 30.7 pg (26.0-34.0); MCHC 34.1 g/dL (31.0-37.0); MCV 89.9 fL (80.0-100.0); MEAN PLATELET VOLUME 12.4 fL (7.4-10.4); NEUTROPHILS 66.1 % (40-80); PLATELET COUNT 135 10x3/uL (130-400); RBC 4.37 10x6/uL (4.00-5.40); RDW 12.8 % (11.5-14.5); WBC 3.5 10x3/uL (4.8-10.8)
== END 2017-08-15 14:40 | disposition home or self-care (01) ==
LOC: D.OPS 08:36 → D.PAN 10:45 → D.OPS 10:45
PROVIDERS: Anesthesiology
DX: R59.0 Localized enlarged lymph nodes (principal); Z85.72 Personal history of non-Hodgkin lymphomas; E03.9 Hypothyroidism, unspecified; Z01.812 Encounter for preprocedural laboratory examination

== ENCOUNTER 2018-02-26 10:34 | Inpatient (IN) | payer MEDICARE, BC ==
[~2018-02-26] VITALS: Ht 162.6 cm; Wt 61.2 kg
--- NOTE | ~2018-02-26 | CN ---
PATIENT NAME:RAUL LOCO MEDICAL RECORD: [id number] : 37 LOCATION:D. D.2125 ADMIT DATE: 02/26/18 ACCOUNT: [id number] CONSULTING PHYSICIAN: NISHA PAGE MD REFERRING PHYSICIAN: DANNI HOLLIS MD DATE OF CONSULTATION: 02/27/2018 HISTORY OF PRESENT ILLNESS: An 82-year-old female with a cardiovascular history. 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 We are asked to see her concerning her cardiovascular status. PAST MEDICAL HISTORY: Includes: 1. History of B-cell lymphoma. 2. Hypertension. 3. Hypothyroidism, on replacement. 4. Mitral regurgitation status post clipping. ALLERGIES: CODEINE and PREDNISONE. MEDICATIONS: Typically include carvedilol 6.25 every day, Seroquel 25 q.h.s., Paxil 20 every day, Lasix 40 every day, Synthroid 88 mcg every day. SOCIAL HISTORY: . She is a nonsmoker. Easily takes care of all her ADLs. Does exercise on a regular basis. Good family support. REVIEW OF SYSTEMS: The patient reports easy bruising but reports no swollen glands. The patient reports no fever, no night sweats, no significant weight gain, no significant weight loss. No significant exercise tolerance. The patient reports no dry eyes, no irritation, no vision change. Patient reports no difficulty hearing and no ear pain. Patient reports no frequent nose bleeds or nose and sinus problems. Patient reports on arm pain on exertion. No shortness of breath while lying down. No history of heart murmur. Patient reports no cough, no wheezing or coughing up blood. Patient reports no abdominal pain, no vomiting. Normal appetite. No diarrhea and not vomiting blood. No nausea and no constipation. Patient reports no incontinence. No difficulty urinating. No hematuria. No increased frequency. Patient reports no muscle aches. No weakness, no arthralgias, no back pain. No swelling of the extremities. Patient reports no abnormal mole, no jaundice, no rashes. Reports no loss of consciousness. No weakness and no numbness. No seizures, dizziness, or headaches. The patient reports no depression, no sleep disturbance, feeling safe in a relationship and no alcohol abuse. Patient reports on fatigue. Reports no runny nose or sinus pressure. No itching, no hives, and no frequent sneezing. PHYSICAL EXAMINATION: GENERAL: Pleasant female in no acute distress. VITAL SIGNS: Blood pressure 112/65, pulse 110 and regular. HEENT: Normocephalic, atraumatic. NECK: No JVD or bruit. HEART: Regular, II/ systolic ejection murmur, S3 gallop is present. LUNGS: Fairly good air excursion, mildly decreased in the bases. ABDOMEN: Soft, nontender. CONSULT REPORT [id number] RAUL LOCO EXTREMITIES: Pulses 2+. No edema. NEUROLOGIC: Grossly intact. IMPRESSION: Volume overload in the phase of cardiomyopathy, ejection fraction about 20%. Moderate MR present at this point in time. We will add Aldactone that should help with potassium sparing as well as hopefully provide inotropic support. Further recommendations based on clinical course. TRANSINT:[id number] Voice Confirmation ID: [id number] DOCUMENT ID: [id number] NISHA PAGE MD at 1254 CC: [id number] DICTATION DATE: 02/27/18 1129 TEST ENGINEERING MANAGER: 02/27/18 1218 DIS IN 03/01/18 [facility] [address] [place] [address]
--- NOTE | ~2018-02-26 | PN ---
PATIENT:RAUL LOCO MEDICAL RECORD: [id number] LOCATION:D. D.212 ADMISSION DATE: 02/26/18 PROGRESS NOTE DATE OF SERVICE: 02/28/2018 An 82-year-old female who has had a history of ischemic cardiomyopathy with ejection fraction of 20%. The patient has had increased fluid intake with weight gain as well as peripheral edema. The patient was admitted for acute congestive heart failure, also had right pleural effusion. The patient today has had over 4 liters of urine output. The patient had thoracentesis with evacuation of 750 cc of pleural fluid. The patient's breathing has improved. The patient had Ativan 0.5 mg last night for sleep. She did not feel well, did not quite get awake until late in the day. There is no orthopnea and there is no PND. There is no fever. PHYSICAL EXAMINATION: GENERAL: Physical exam reveals an elderly female who is in no acute distress. VITAL SIGNS: Temperature 98.6, heart rate of 64, respiratory rate of 17. Blood pressure 94/44. SHEENT: Unremarkable. NECK: Supple, no tenderness. LUNGS: Chest exam is clear and symmetric. CARDIAC: Exam shows no jugular venous distention, no murmur or gallop. ABDOMEN: Benign. There is no tenderness. EXTREMITIES: No clubbing, cyanosis or edema. LABORATORY DATA: Showed white count of 7.7, hemoglobin 10.1. Platelet count is 207,000. Chemistry, sodium is 129, potassium 3.2. ASSESSMENT: 1. Ischemic cardiomyopathy, ejection fraction 20%. 2. Congestive heart failure, most likely systolic. 3. Right pleural effusion, evacuated. PLAN: She may be discharged. The pulmonary team will sign off at this time. If needed please consult the pulmonary team again. TRANSINT:[id number] Voice Confirmation ID: [id number] DOCUMENT ID: [id number] AILYN CARCAMO at 1307 CC: [id number] DICTATION DATE: 02/28/182221 EMPLOYMENT TRAINER: 03/01/18 0835 DIS IN 03/01/18 [place] [id number] [place] [address]
--- NOTE | ~2018-02-26 | EC ---
PATIENT:RAUL LOCO DATE OF SERVICE: 02/26/18 SEX: F MEDICAL RECORD: [id number] DATE OF : 36 LOCATION:D. D.212 AGE OF PATIENT: 82 ADMISSION DATE: 02/26/18 REFERRING PHYSICIAN: INTERPRETING PHYSICIAN: NISHA PAGE MD ECHOCARDIOGRAM REPORT ECHO CHARGES 4 ECHO COMPLETE Date: 02/26 CLINICAL DIAGNOSIS: CHF/PLEURAL EFF/ HX OF MV REPAIR WITH 2 CLIPS, AI,TR ECHOCARDIOGRAPHIC MEASUREMENTS (adult normal given) AC root (d.<3.7cm) 3.3 cm LV Septum d (<1.2 cm> 1.2 cm Valve Excursion 1.8 cm LV Septum (systole) 1.5 cm Left Atria (s.<4.0cm> 4.3 cm LVPW d(<1.2cm) 1.3 cm RV (d.<2.3cm) 4.0 cm LVPW (sytole) 1.6 cm LV diastole(<5.6CM) 4.9 cm MV E-F(>70mm/sec) cm LV systole 4.1 cm LVOT Diameter 1.9 cm MV exc.(>10mm) 1.1 cm Est.ejection fraction (50-75%) % DOPPLER: LVIT cm/sec A 105 cm/sec E 140 cm/sec LA cm/sec RVSP 58 mmHg LVOT 78 cm/sec AOP1/2T m/s Asc. Ao 121 cm/sec RVOT 59 cm/sec RA cm/sec PA 90 cm/sec AV Gradient Peak 5.87 mmHg AV Mean 3.12 mmHg AV Area 1.7 cm MV Gradient Peak 9.76 mmHg MV Mean 3.67 mmHg MV Area cm COMMENTS: Technical Support Technician: 2 ZACK ROMAN Taker Off: 3 Dr. Nails TAPE# PACS Pericardial Effusion N DATE OF SERVICE: 02/27/2018 Adequate 2D echo, color flow and spectral Doppler, M-mode No LVH. LV internal dimensions are dilated. LV is severely globally hypokinetic, reduced EF, estimated 20%. Aortic valve sclerosis is without stenosis by Doppler interrogation. Wisf-op-botidjww apical imaging. Left atrium is dilated at 4.3 cm. Mitral valve shows previous clipping and a moderate MR. Right-sided chambers appear upper limits of normal to mildly dilated. Moderate to severe TR by color flow imaging. ECHOCARDIOGRAM REPORT [id number] RAUL LOCO TRANSINT:[id number] Voice Confirmation ID: [id number] DOCUMENT ID: [id number] NISHA PAGE MD at 1254 CC: [id number] DICTATION DATE: 02/27/18 0834 BUTTONHOLER: 02/27/18 1139 DIS IN 03/01/18 [place] [id number] [place] [id number]
--- NOTE | ~2018-02-26 | PN ---
PATIENT:RAUL LOCO MEDICAL RECORD: [id number] LOCATION:D.M2 D.212 ADMISSION DATE: 02/26/18 PROGRESS NOTE DATE OF SERVICE: 02/27/2018 This 82-year-old female who was admitted to the Emergency Room for volume overload and congestive heart failure. The patient apparently has been drinking large amounts of water, tea, and juices. The patient noted a swelling on both feet as well as shortness of breath and orthopnea. She was seen in the Emergency Room and was thought to have volume overload and given Lasix and had more than 2 liters of urine. She has had decreasing edema and shortness of breath. The patient has hypokalemia and was given potassium. She insisted on going home today, but her did not allow her. PHYSICAL EXAMINATION: GENERAL: Physical exam reveals an elderly female who is in no acute distress. VITAL SIGNS: Temperature 96.6, heart rate of 110, respiratory rate 18, blood pressure 112/65, saturation 98%. SHEENT: Unremarkable. NECK: Supple. CHEST: Mild rales. CARDIAC: Exam shows moderate jugular venous distention at 30-degree angle. There is no S3 gallop. ABDOMEN: Benign, without any tenderness. EXTREMITIES: Shows 1-2+ pitting edema bilaterally. LABORATORY DATA: Showed potassium of 2.9, magnesium is 1.2. White count 7.1, hemoglobin 9.9. Chest x-ray showed persistent cardiomegaly, bilateral atelectasis, pleural effusions right greater than left without significant interval change. ASSESSMENT AND PLAN: 1. Acute congestive heart failure secondary to excessive water drinking. 2. Cardiomyopathy. Echocardiogram showed ejection fraction 20%. 3. Ischemic cardiomyopathy with ejection fraction of 20%. The patient will need to decrease beta-jose de jesus as well as MARIANA inhibitor. 4. Hypokalemia. Potassium supplementation. 5. Hypomagnesemia. Magnesium supplementation. 6. Deep venous thrombosis prophylaxis. TRANSINT:[id number] Voice Confirmation ID: [id number] DOCUMENT ID: [id number] PROGRESS NOTE [id number] RAUL LOCO AILYN CARCAMO at 1307 CC: [id number] DICTATION DATE: 02/27/182209 ROUNDSMAN: 02/28/18 0352 DIS IN 03/01/18 [facility] [address] [place] [address]
[~2018-02-26 10:34] MED LIST changes: +BENADRYL25 MG PO; +LISINOPRIL2.5 MG PO
[2018-02-26] MEDS ORDERED: SEROQUEL25 MG PO (11:02)
[2018-02-26] MEDS ORDERED: PAXIL20 MG PO (11:03)
[2018-02-26 11:11] LABS: BASOPHILS 0 % (0-2); EOSINOPHILS 0 % (0-7); HEMATOCRIT 28.7 % (36.0-48.0); HEMOGLOBIN 9.6 g/dL (12-16); IMMATURE GRANULOCYTES 0.8 % (0-5); LYMPHOCYTES 7.1 % (15-50); MCHC 33.4 g/dL (31.0-37.0); MCV 101.8 fL (80.0-100.0); MEAN PLATELET VOLUME 11.9 fL (7.4-10.4); MONOCYTES 6.2 % (2-11); NEUTROPHILS 85.9 % (40-80); RBC 2.82 10x6/uL (4.00-5.40); RDW 23.1 % (11.5-14.5); WBC 6.7 10x3/uL (4.8-10.8)
[2018-02-26 11:15] LABS: PLATELET COUNT 210 10x3/uL (130-400)
[2018-02-26 11:20] LABS: APTT 27.1 SECONDS (22.8-39.4)
[2018-02-26 11:21] LABS: INR 1.62 (0.85-1.17); PROTIME 18.7 SECONDS (11.6-15.0)
[2018-02-26 11:28] LABS: ALBUMIN 3.7 g/dL (3.4-5.0); ALKALINE PHOSPHATASE 86 U/L (46-116); ALT (SGPT) 62 U/L (10-68); BILIRUBIN - TOTAL 0.74 mg/dL (0.2-1.3); CALC OSMOLALITY 259 mosm/kg (275-300); CALCIUM 8.6 mg/dL (8.5-10.1); CARBON DIOXIDE 22.7 mmol/L (21.0-32.0); CHLORIDE - SERUM 90 mmol/L (98-107); CREATININE - SERUM 1.2 mg/dL (0.6-1.3); GLUCOSE 133 mg/dL (74-106); POTASSIUM - SERUM 4.9 mmol/L (3.5-5.1); PROTEIN - SERUM 6.3 g/dL (6.4-8.2); SODIUM 124 mmol/L (136-145); UREA NITROGEN 35 mg/dL (7-18); eGFR NON AFRICAN AMERICAN 46 mL/min (90-120)
[2018-02-26 11:41] LABS: CKMB 14.1 U/L (0.0-3.6); TROPONIN-I 0.027 ng/mL (0.000-0.060)
[2018-02-26 11:43] LABS: PRO BNP 58321 pg/mL (0-450)
[2018-02-26 12:29] LABS: APPEARANCE CLEAR (CLEAR); BILIRUBIN NEGATIVE (NEGATIVE); COLOR YELLOW (YELLOW); GLUCOSE NEGATIVE (NEGATIVE); KETONE NEGATIVE (NEGATIVE); NITRITE NEGATIVE (NEGATIVE); PROTEIN 2+ mg/dL (NEGATIVE); SPECIFIC GRAVITY 1.025 (1.005-1.020); UROBILINOGEN NORMAL (NORMAL)
[2018-02-26 12:31] VITALS: BP 135/72
[2018-02-26 12:31] LABS: BACTERIA FEW /hpf (NONE SEEN); EPITHELIAL CELLS 0-5 /hpf (0-5); HYALINE CAST OCC /lpf (NONE SEEN); RED CELLS - URINE 0-5 /hpf (0-5); WHITE CELLS - URINE 0-5 /hpf (0-5)
[2018-02-26 13:14] VITALS: BP 127/70
[2018-02-26 13:47] VITALS: BP 140/71
[2018-02-26 15:53] VITALS: BP 140/71
[2018-02-26 19:14] VITALS: BP 119/70; BMI 23.2
[2018-02-26 21:54] VITALS: BP 127/68
[2018-02-27 02:13] VITALS: BP 123/56
[2018-02-27 05:26] VITALS: BP 136/75
[2018-02-27 05:58] LABS: BASOPHILS 0 % (0-2); EOSINOPHILS 0 % (0-7); HEMOGLOBIN 9.9 g/dL (12-16); IMMATURE GRANULOCYTES 0.4 % (0-5); LYMPHOCYTES 11.2 % (15-50); MCH 33.7 pg (26.0-34.0); MCHC 34.1 g/dL (31.0-37.0); MEAN PLATELET VOLUME 11.7 fL (7.4-10.4); MONOCYTES 5.2 % (2-11); NEUTROPHILS 83.2 % (40-80); PLATELET COUNT 223 10x3/uL (130-400); RBC 2.94 10x6/uL (4.00-5.40); RDW 23.4 % (11.5-14.5); WBC 7.1 10x3/uL (4.8-10.8)
[2018-02-27 06:33] LABS: MCV 98.6 fL (80.0-100.0)
[2018-02-27 06:35] LABS: % SATURATION 18 % (15-55); IRON 61 ug/dl (35-150); TOTAL IRON BIND CAPACITY 322 ug/dl (260-445); UNSAT IRON BIND CAPACITY 261 ug/dl (150-375)
[2018-02-27 06:54] LABS: ALBUMIN 3.8 g/dL (3.4-5.0); BILIRUBIN - DIRECT 0.24 mg/dL (0.00-0.30); BILIRUBIN - INDIRECT 0.36 mg/dL (0.00-1.00); BILIRUBIN - TOTAL 0.6 mg/dL (0.2-1.3); CALCIUM 8.5 mg/dL (8.5-10.1); CARBON DIOXIDE 27.7 mmol/L (21.0-32.0); CREATININE - SERUM 1.1 mg/dL (0.6-1.3); MAGNESIUM - SERUM 1.3 mg/dL (1.8-2.4); PHOSPHOROUS 3.4 mg/dL (2.5-4.9); PROTEIN - SERUM 6.4 g/dL (6.4-8.2)
[2018-02-27 07:05] LABS: POTASSIUM - SERUM 2.7 mmol/L (3.5-5.1)
[2018-02-27 10:00] VITALS: BP 112/65
[2018-02-27 13:52] VITALS: Ht 162.6 cm; Wt 61.2 kg
[2018-02-27 21:35] LABS: MAGNESIUM - SERUM 1.2 mg/dL (1.8-2.4)
[2018-02-27 21:41] LABS: POTASSIUM - SERUM 2.9 mmol/L (3.5-5.1)
[2018-02-28] VITALS (7 sets, daily range): BP systolic 94–144; BP diastolic 44–78
[2018-02-28 04:51] LABS: BASOPHILS 0 % (0-2); EOSINOPHILS 0.3 % (0-7); HEMATOCRIT 29.8 % (36.0-48.0); HEMOGLOBIN 10.1 g/dL (12-16); IMMATURE GRANULOCYTES 0.6 % (0-5); LYMPHOCYTES 13.4 % (15-50); MCH 34.1 pg (26.0-34.0); MCHC 33.9 g/dL (31.0-37.0); MEAN PLATELET VOLUME 11.6 fL (7.4-10.4); MONOCYTES 8.1 % (2-11); NEUTROPHILS 77.6 % (40-80); PLATELET COUNT 207 10x3/uL (130-400); RBC 2.96 10x6/uL (4.00-5.40); RDW 23.8 % (11.5-14.5); WBC 7.7 10x3/uL (4.8-10.8)
[2018-02-28 04:56] LABS: MCV 100.7 fL (80.0-100.0)
[2018-02-28 05:50] LABS: ALBUMIN 3.3 g/dL (3.4-5.0); BILIRUBIN - TOTAL 0.55 mg/dL (0.2-1.3); CALCIUM 7.7 mg/dL (8.5-10.1); CARBON DIOXIDE 31.9 mmol/L (21.0-32.0); MAGNESIUM - SERUM 1.3 mg/dL (1.8-2.4); PROTEIN - SERUM 5.6 g/dL (6.4-8.2)
[2018-02-28 05:56] LABS: POTASSIUM - SERUM 3.9 mmol/L (3.5-5.1)
[2018-02-28 08:38] LABS: ANION GAP 12.2 mmol/L (8-16); CREATININE - SERUM 1.1 mg/dL (0.6-1.3); POTASSIUM - SERUM 3.2 mmol/L (3.5-5.1)
[2018-02-28 08:41] LABS: APTT 25.5 SECONDS (22.8-39.4); INR 1.34 (0.85-1.17); PROTIME 16.1 SECONDS (11.6-15.0)
[2018-02-28 11:21] LABS: ANA REFLEX - DIRECT Negative (Negative)
[2018-02-28 17:03] LABS: PROTEIN - BODY FLUID 1.7 G/DL
[2018-02-28 18:12] LABS: EOS BF 2 %; MACROPHAGES BF 58 %; MESOTHELIALS BF 7 %; NEUT - BF 11 %
[2018-03-01] VITALS: BP 108/55
[2018-03-01 04:00] VITALS: BP 152/68
[2018-03-01] MEDS ORDERED: ALDACTONE25 MG PO (07:14)
[2018-03-01] MEDS ORDERED: LISINOPRIL2.5 MG PO (07:14)
[2018-03-01 07:47] LABS: ANION GAP 10.9 mmol/L (8-16); CALCIUM 7.8 mg/dL (8.5-10.1); CARBON DIOXIDE 36.1 mmol/L (21.0-32.0); CREATININE - SERUM 0.9 mg/dL (0.6-1.3)
[2018-03-01 08:52] VITALS: BP 115/54
[2018-03-02 21:08] LABS: ACID FAST SMEAR Negative (()); AFB SPECIMEN PROCESSING Not Indicated (())
[2018-03-03 11:19] LABS: FUNGUS STAIN Final report (())
[2018-03-29 06:14] LABS: FUNGUS MYCOLOGY CULTURE Final report (())
== END 2018-03-01 12:27 | disposition home or self-care (01) | DRG 292 ==
LOC: D.ER 10:34 → D.EDHOLD 16:16 → D.M2 16:16
PROVIDERS: Family Medicine; Internal Medicine Pulmonary Disease; Radiology Diagnostic Radiology
PROC: 0W993ZZ Drainage of Right Pleural Cavity, Percutaneous Approach (ICD-10-PCS; principal; 2018-02-28 15:05)
DX: I11.0 Hypertensive heart disease with heart failure (principal); E87.1 Hypo-osmolality and hyponatremia; J90 Pleural effusion, not elsewhere classified; J98.11 Atelectasis; N39.0 Urinary tract infection, site not specified; F05 Delirium due to known physiological condition; I50.23 Acute on chronic systolic (congestive) heart failure; I25.5 Ischemic cardiomyopathy; E87.6 Hypokalemia; E83.42 Hypomagnesemia; F03.90 Unspecified dementia, unspecified severity, without behavioral disturbance, psychotic disturbance, mood disturbance, and anxiety; I08.1 Rheumatic disorders of both mitral and tricuspid valves; E55.9 Vitamin D deficiency, unspecified; I27.20 Pulmonary hypertension, unspecified; J30.9 Allergic rhinitis, unspecified; Z85.72 Personal history of non-Hodgkin lymphomas; R79.89 Other specified abnormal findings of blood chemistry

== ENCOUNTER 2018-04-17 14:44 | Inpatient (IN) | payer MEDICARE, BC ==
[~2018-04-17] VITALS: Ht 162.6 cm; Wt 56.2 kg
--- NOTE | ~2018-04-17 | PN ---
PATIENT:RAUL LOCO MEDICAL RECORD: [id number] LOCATION:EZE Etienne ADMISSION DATE: 04/17/18 PROGRESS NOTE DATE OF SERVICE: 04/23/2018 SUBJECTIVE: The patient's case was discussed with staff. She has no new complaint. OBJECTIVE: The patient denies intent to harm herself or others. She is confused, but has not been aggressive today. ASSESSMENT: No change in diagnoses. PLAN: Supportive and educational interventions were made. Long-term prognosis is guarded. TRANSINT:[id number] Voice Confirmation ID: [id number] DOCUMENT ID: [id number] BERT OKEEFE MD at 1351 CC: [id number] DICTATION DATE: 04/23/18 1246 SUPPORT TEACHER: 04/23/181951 ADM IN [facility] [address] [place] [address]
--- NOTE | ~2018-04-17 | PN ---
PATIENT:RAUL LOCO MEDICAL RECORD: [id number] LOCATION:EZE Etienne ADMISSION DATE: 04/17/18 PROGRESS NOTE DATE OF SERVICE: 04/21/2018 SUBJECTIVE: The patient's case was discussed with staff. She has no new complaint. OBJECTIVE: The patient is in good behavioral control with limited insight about her condition. She was agitated last night and did receive p.r.n. medication. ASSESSMENT: No change in diagnoses. PLAN: Current medicines and therapies have been reviewed, both will be maintained. I am going to start her on a low dose of Klonopin to assist with her agitation. Her long-term prognosis is guarded. TRANSINT:[id number] Voice Confirmation ID: [id number] DOCUMENT ID: [id number] BERT OKEEFE MD at 1234 CC: [id number] DICTATION DATE: 04/21/18 1423 SENIOR VISUAL DESIGNER: 04/21/18 1437 ADM IN [place] [id number] [place] [id number]
--- NOTE | ~2018-04-17 | PN ---
PATIENT:RAUL LOCO MEDICAL RECORD: [id number] LOCATION:EZE Etienne ADMISSION DATE: 04/17/18 PROGRESS NOTE DATE OF SERVICE: 04/25/2018 SUBJECTIVE: The patient's case was discussed with staff. She has no new complaint. OBJECTIVE: The patient is sleeping a little better with the addition of the Klonopin. She has pretty limited insight about her situation. She is questioning a lot of pills, it is certainly appropriate for her to do so, but I am concerned that she may not take all the different medicines she has been and so I am going to try to just increase her bedtime dose of Seroquel slightly and discontinue the Klonopin altogether. ASSESSMENT: No change in diagnoses. PLAN: As above. The patient's Seroquel will be increased. Her is going to take her home. He has been educated about safety measures for the home and he is also going to look into sending her to the caring place for additional activities and structure to her day. TRANSINT:[id number] Voice Confirmation ID: [id number] DOCUMENT ID: [id number] BERT OKEEFE MD at 1419 CC: [id number] DICTATION DATE: 04/25/18 1438 BRIM SETTER: 04/25/18 1546 ADM IN [place] [id number] [place] [id number]
--- NOTE | ~2018-04-17 | PN ---
PATIENT:RAUL LOCO MEDICAL RECORD: [id number] LOCATION:EZE Etienne ADMISSION DATE: 04/17/18 PROGRESS NOTE DATE OF SERVICE: 04/22/2018 SUBJECTIVE: The patient's case was discussed with staff. She has no new complaint. OBJECTIVE: The patient is in good behavioral control, but was quite agitated yesterday. ASSESSMENT: No change in diagnoses. PLAN: The patient has had some significant medication adjustments in the past few days. Most recently was the addition of the Klonopin at a dose of 0.25 mg twice daily. I do not think it has had an opportunity to become effective. Despite the fact that she was given p.r.n. medication last night, I am going to hold off on making any adjustments in her medication regimen today. TRANSINT:[id number] Voice Confirmation ID: [id number] DOCUMENT ID: [id number] BERT OKEEFE MD at 1226 CC: [id number] DICTATION DATE: 04/22/18 1245 ELECTRICAL LINEMAN: 04/22/18 1250 ADM IN [place] [id number] [place] [id number]
--- NOTE | ~2018-04-17 | PSY ---
PATIENT NAME:RAUL LOCO MEDICAL RECORD: [id number] : 37 LOCATION:EZE Etienne5 ADMISSION DATE: 04/17/18 ACCOUNT: [id number] PSYCHIATRIC EVALUATION DATE OF EVALUATION: 04/18/18 IDENTIFYING DATA: The patient is 82 years old and she is admitted to the hospital on a voluntary basis. CHIEF COMPLAINT: Aggression. HISTORY OF PRESENT ILLNESS: The patient has an established diagnosis of dementia. She does not believe she has the diagnosis. She lives at home with her . She has become increasingly confused, agitated, and at times aggressive with the . The recently with the assistance of his primary care physician, Dr. Solo in [place] has had her hospitalized at [facility]. The felt that he wanted to try her at home again and so he took her out of the hospital there and back home. When she was at home, she began having the same behaviors. He contacted Dr. Solo yesterday and she was referred here. The patient is very confused. She says that she just has come here to have blood work and that she wants to leave as soon as that is done, but when it is explained to her that she is here for other reasons, she is accepting of it. She has been agitated and aggressive, slamming doors and yelling at staff, but she has not physically assaulted anyone. PAST MEDICAL HISTORY: Significant for multiple myeloma, hypothyroidism, hypertension, rheumatoid arthritis. PAST PSYCHIATRIC HISTORY: Significant for the established diagnosis of dementia. FAMILY HISTORY: Unknown. ALLERGIES: CODEINE AND PREDNISONE. CURRENT MEDICATIONS: Include Coreg, Advil, Seroquel, Lasix, Zestril, Aldactone, Paxil, and Synthroid. SOCIAL HISTORY: The patient is . She has a bachelor's degree in music and has adult children who are functioning well. She has no history of drug or alcohol abuse. MENTAL STATUS EXAMINATION: The patient is awake, alert, and oriented to person and somewhat to place and time, but not at all to situation. Her mood is euthymic. Her affect is appropriate. Thought processes are circumstantial. Memory, concentration, and abstraction abilities are moderately impaired, and she denies any active intent to harm herself or others as well as any overt psychotic symptoms. ASSETS: Supportive family members. LIABILITIES: Limited insight. DIAGNOSTIC IMPRESSION: AXIS I: Senile dementia of the Alzheimer's type with behavioral disturbances. AXIS II: None. AXIS III: Hypothyroidism, hypertension, and rheumatoid arthritis. AXIS IV: Moderate. AXIS V: Global assessment of functioning is 35. PLAN: At this time, the patient is admitted to the hospital secondary to aggressive behavior associated with a dementing illness. She will be comprehensively evaluated from both a medical, psychological, and social standpoint. Her long-term prognosis is guarded. TRANSINT:[id number] Voice Confirmation ID: [id number] DOCUMENT ID: [id number] BERT OKEEFE MD at 1449 CC: [id number] DICTATION DATE: 04/18/18 1512 APPLICATIONS PROJECT MANAGER: 04/18/18 1557 ADM IN [place] [id number] [place] [address]
--- NOTE | ~2018-04-17 | PN ---
PATIENT:RAUL LOCO MEDICAL RECORD: [id number] LOCATION:EZE Etienne ADMISSION DATE: 04/17/18 PROGRESS NOTE DATE OF SERVICE: 04/20/2018 SUBJECTIVE: The patient's case was discussed with staff. She has no new complaint. OBJECTIVE: The patient is disorganized and has severe short-term memory impairment. As is often the case, she has absolutely no insight about the fact that she has any memory impairment and insists that everything is perfectly fine. ASSESSMENT: No change in diagnoses. PLAN: The patient was slightly hypothyroid when she came to the hospital. She is taking Synthroid, the dose has been adjusted. She may significantly improve with that adjustment. I am going to start her on Aricept for its memory enhancing properties. Her long-term prognosis is guarded. TRANSINT:[id number] Voice Confirmation ID: [id number] DOCUMENT ID: [id number] BERT OKEEFE MD at 1341 CC: [id number] DICTATION DATE: 04/20/18 1455 COLLABORATING SUPERVISING PHYSICIAN: 04/20/18 1502 ADM IN [facility] [address] [place] [address]
--- NOTE | ~2018-04-17 | PN ---
PATIENT:RAUL LOCO MEDICAL RECORD: [id number] LOCATION:EZE Etienne ADMISSION DATE: 04/17/18 PROGRESS NOTE DATE OF SERVICE: 04/19/2018 SUBJECTIVE: The patient's case was discussed with staff. She has no new complaint. OBJECTIVE: The patient is in good behavioral control with limited insight about her condition. She generally tolerates her medicines well. She was very agitated last night, was screaming and quite confused. She had to be given a sedative. She has no recollection of what occurred. ASSESSMENT: No change in diagnoses. PLAN: I think the patient needs extensive pharmacologic management before being transitioned to the halfway. Taking this in a systematic fashion, I think the greatest need is to stop the Paxil, which has anticholinergic factors or properties and would likely worsen her confusion. I cut the dose in half yesterday. Today, I will discontinue it. TRANSINT:[id number] Voice Confirmation ID: [id number] DOCUMENT ID: [id number] BERT OKEEFE MD at 1407 CC: [id number] DICTATION DATE: 04/19/18 1507 FIRER BOILER: 04/19/18 1515 ADM IN [facility] [address] [place] [address]
--- NOTE | ~2018-04-17 | PN ---
PATIENT:RAUL LOCO MEDICAL RECORD: [id number] LOCATION:EZE Etienne ADMISSION DATE: 04/17/18 PROGRESS NOTE DATE OF SERVICE: 04/26/2018 SUBJECTIVE: The patient's case was discussed with staff. She has no new complaint. OBJECTIVE: The patient is in good behavioral control with no recent behavior problems. She is tolerating her medications well. ASSESSMENT: No change in diagnoses. PLAN: Current medicines and therapies have been reviewed and will be maintained. Her long-term prognosis is guarded. TRANSINT:[id number] Voice Confirmation ID: [id number] DOCUMENT ID: [id number] BERT OKEEFE MD at 1340 CC: [id number] DICTATION DATE: 04/26/18 1441 DATA PROCESSING CLERK: 04/26/18 1546 ADM IN [place] [id number] [place] [address]
--- NOTE | ~2018-04-17 | PN ---
PATIENT:RAUL LOCO MEDICAL RECORD: [id number] LOCATION:EZE Etienne ADMISSION DATE: 04/17/18 PROGRESS NOTE DATE OF SERVICE: 04/24/2018 SUBJECTIVE: The patient's case was discussed with staff. She has no new complaint. OBJECTIVE: The patient is in good behavioral control. She is tolerating her medicines well. Eye contact is fair. ASSESSMENT: No change in diagnoses. PLAN: Supportive and educational interventions were made. The patient's long-term prognosis is guarded. I am going to reduce her Klonopin to just at bedtime. TRANSINT:[id number] Voice Confirmation ID: [id number] DOCUMENT ID: [id number] BERT OKEEFE MD at 1416 CC: [id number] DICTATION DATE: 04/24/18 1604 NURSING TECHNICIAN: 04/24/18 1634 ADM IN [place] [id number] [place] [id number]
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
--- NOTE | ~2018-04-17 | PN ---
PATIENT:RAUL LOCO MEDICAL RECORD: [id number] LOCATION:[facility] ADMISSION DATE: 04/17/18 PROGRESS NOTE DATE OF SERVICE: 04/27/2018 SUBJECTIVE: The patient's case was discussed with staff. She has no new complaint. OBJECTIVE: The patient denies intent to harm herself or others. She generally tolerates her medicines well. Eye contact is fair. ASSESSMENT: No change in diagnoses. PLAN: Supportive and educational interventions were made. Her long-term prognosis is guarded. She has significantly improved and I anticipate that she can be transitioned out of the hospital tomorrow if this level of improvement is maintained. TRANSINT:[id number] Voice Confirmation ID: [id number] DOCUMENT ID: [id number] BERT OKEEFE MD at 1406 CC: [id number] DICTATION DATE: 04/27/18 1446 HEAD SILVERMAN: 04/27/18 1500 DIS IN 04/28/18 [id number] [place] [address]
[~2018-04-17 14:44] MED LIST changes: +ALDACTONE25 MG PO; +PAXIL20 MG PO; +SEROQUEL25 MG PO
[2018-04-17 17:06] LABS: BASOPHILS 1.8 % (0-2); EOSINOPHILS 4.1 % (0-7); HEMATOCRIT 40.7 % (36.0-48.0); HEMOGLOBIN 13.8 g/dL (12-16); IMMATURE GRANULOCYTES 0.5 % (0-5); LYMPHOCYTES 30.1 % (15-50); MCH 33.4 pg (26.0-34.0); MCHC 33.9 g/dL (31.0-37.0); MCV 98.5 fL (80.0-100.0); MEAN PLATELET VOLUME 12.1 fL (7.4-10.4); MONOCYTES 12.5 % (2-11); RBC 4.13 10x6/uL (4.00-5.40); WBC 3.9 10x3/uL (4.8-10.8)
[2018-04-17 17:19] LABS: PLATELET COUNT 146 10x3/uL (130-400)
[2018-04-17 17:48] LABS: ALBUMIN 4.3 g/dL (3.4-5.0); ANION GAP 10.9 mmol/L (8-16); BILIRUBIN - TOTAL 0.28 mg/dL (0.2-1.3); CALCIUM 9.5 mg/dL (8.5-10.1); CARBON DIOXIDE 32.2 mmol/L (21.0-32.0); CHOL - HDL RATIO 2.1 ratio (2.3-4.1); CREATININE - SERUM 0.9 mg/dL (0.6-1.3); POTASSIUM - SERUM 4.1 mmol/L (3.5-5.1); PROTEIN - SERUM 7.7 g/dL (6.4-8.2); THYROID STIMULATING HORMONE 8.36 uIU/mL (0.36-3.74)
[2018-04-17 18:10] VITALS: BP 130/64
[2018-04-17] MEDS ORDERED: IBUPROFEN200 MG PO (18:44)
[2018-04-17] MEDS ORDERED: SYNTHROID25 MCG PO (18:45)
[2018-04-17] MEDS ORDERED: GYNE-LOTRIMIN-745 GM (18:46)
[2018-04-18 08:00] VITALS: BP 120/61
[2018-04-18 08:07] VITALS: BMI 21.3
[2018-04-18 08:23] LABS: APPEARANCE CLEAR (CLEAR); COLOR YELLOW (YELLOW)
[2018-04-18 08:24] LABS: BILIRUBIN NEGATIVE (NEGATIVE); GLUCOSE NEGATIVE (NEGATIVE); KETONE NEGATIVE (NEGATIVE); NITRITE NEGATIVE (NEGATIVE); PH 6.5 (5.0-6.0); PROTEIN 1+ mg/dL (NEGATIVE); SPECIFIC GRAVITY 1.015 (1.005-1.020); UROBILINOGEN NORMAL (NORMAL)
[2018-04-18 08:42] LABS: BACTERIA FEW /hpf (NONE SEEN); EPITHELIAL CELLS 0-5 /hpf (0-5); WHITE CELLS - URINE 0-5 /hpf (0-5)
[2018-04-18 14:08] VITALS: Ht 162.6 cm; Wt 56.2 kg
[2018-04-18 20:46] VITALS: BP 142/66
[2018-04-19 08:19] LABS: FOLATE (FOLIC ACID) - SERUM >20.0 ng/mL (>3.0)
[2018-04-19 10:28] VITALS: BP 152/78
[2018-04-19 20:27] VITALS: BP 133/73
[2018-04-20 10:09] VITALS: BP 132/54
[2018-04-20 19:38] VITALS: BP 153/69
[2018-04-21 08:04] LABS: APPEARANCE CLEAR (CLEAR); BILIRUBIN NEGATIVE (NEGATIVE); COLOR STRAW (YELLOW); GLUCOSE NEGATIVE (NEGATIVE); KETONE NEGATIVE (NEGATIVE); NITRITE NEGATIVE (NEGATIVE); PROTEIN TRACE mg/dL (NEGATIVE); SPECIFIC GRAVITY 1.005 (1.005-1.020); UROBILINOGEN NORMAL (NORMAL)
[2018-04-21 08:05] LABS: AMORPHOUS SEDIMENT <1+ /lpf (NONE SEEN); BACTERIA FEW /hpf (NONE SEEN); MUCUS <1+ /lpf (NONE SEEN)
[2018-04-21 10:41] VITALS: BP 148/94
[2018-04-22 10:15] VITALS: BP 147/69
[2018-04-22 20:00] VITALS: BP 148/56
[2018-04-23 11:02] VITALS: BP 131/51
[2018-04-23 19:47] VITALS: BP 113/46
[2018-04-24 07:00] VITALS: BP 154/77
[2018-04-24 19:50] VITALS: BP 147/62
[2018-04-25 10:00] VITALS: BP 132/51
[2018-04-25 19:46] VITALS: BP 131/48
[2018-04-26 08:00] VITALS: BP 127/62
[2018-04-26 20:24] VITALS: BP 123/55
[2018-04-27] MEDS ORDERED: SEROQUEL25 MG PO (14:47)
[2018-04-27] MEDS ORDERED: Aricept PO (14:47)
[2018-04-27 21:02] VITALS: BP 132/54
[2018-04-28 09:07] VITALS: BP 136/60
== END 2018-04-28 10:15 | disposition home or self-care (01) | DRG 57 ==
LOC: D.PSYCH 14:44
PROVIDERS: Family Medicine; Psychiatry & Neurology Psychiatry
DX: G30.1 Alzheimer's disease with late onset (principal); F02.81 Dementia in other diseases classified elsewhere, unspecified severity, with behavioral disturbance; E03.9 Hypothyroidism, unspecified; I11.0 Hypertensive heart disease with heart failure; I50.9 Heart failure, unspecified; M06.9 Rheumatoid arthritis, unspecified; F41.9 Anxiety disorder, unspecified; E55.9 Vitamin D deficiency, unspecified; Z85.72 Personal history of non-Hodgkin lymphomas

== ENCOUNTER 2018-05-06 09:37 | Inpatient (IN) | payer MEDICARE, BC ==
[~2018-05-06] VITALS: Ht 162.6 cm; Wt 56.8 kg
--- NOTE | ~2018-05-06 | MORECARE ---
CASE MANAGEMENT DISCHARGE SUMMARY PATIENT: RAUL LOCO UNIT: [id number] ADM DATE: 05/06/18 AGE: 82 : 36 SEX: F ROOM/BED: D.2227 AUTHOR: ORLANDO,DOC PHYSICIAN: REFERRING PHYSICIAN: WHITNEY VASQUEZ MD DATE OF SERVICE: 05/08/18 Discharge Plan Patient Name: RAUL LOCO Facility: [facility]:[place] : 1935 Planned Disposition: Home Anticipated Discharge Date: 05/08/18 Discharge Date: Expected LOS: 2 Initial Reviewer: [id number] Initial Review Date: 05/06/2018 Generated: 05/08/18 12:20 pm Comments DCP- Discharge Planning Updated by [id number]: Berkley Villalba on 05/07/18 3:[address] PHYSICAL THERAPY EVALUATION TODAY. PATIENT OOB W/ MOD TO MAX ASSIST. INITIAL PLAN FOR DISCHARGE TO HOME. PATIENT MAY NEED SOME REHAB VS HOME W/ HOME HEALTH . CM SPOKE WITH DR VASQUEZ REGARDING OT EVAL IN ADDITION TO PHYSICAL THERAPY SHOULD PATIENT REQUIRE REHAB CARE. CM FOLLOWING TO ASSIST WITH DISCHARGE PLANNING. DCP- Discharge Planning Updated by [email or web address]: Myesha Crawford on 05/06/18 12:[address] Patient Name: RAUL LOCO Admission Status: Accout number: [id number] Admission Date: 05-06-2018 : 1935 Admission Diagnosis: Attending: WHITNEY VASQUEZ Current LOS: 1 Anticipated DC Date: 05-08-2018 Planned Disposition: Home Primary Insurance: MEDICARE A & B Discharge Planning Comments: CM met with patient and her to complete initial dc planning assessment. CM educated patient on the CM role and verbal consent given by patient to complete assessment. Patient lives at home with her . She reports she is mostly independent in her care at home prior to fall. At discharge patient plans to return home with her and feels this is a safe discharge. She is unsure at this time what she will need as far as therapy. CM discussed Rehab, op therapy, and home health options. CM will continue to follow and will assist as needed with dc plans/needs. See below for more assessment information. Is the patient Alert and Oriented? Yes * How many steps to enter\exit or inside your home? 4/5 * PCP Dr. Eric Solo in [place] * [facility]acy [facility] * Preadmission Environment Home with Family * ADLs Independent * Equipment None * List name and contact numbers for known caregivers / representatives who currently or will assist patient after discharge: Tierra Bowens [phone] * Verbal permission to speak to the caregivers and representatives has been obtained from the patient. Yes * Community resources currently utilized None * Additional services required to return to the preadmission environment? Yes * Can the patient safely return to the preadmission environment? Yes * Has this patient been hospitalized within the prior 30 days at any hospital? No Recreational Vehicle Repairer: Myesha Crawford RN, [facility] DCPIA - Discharge Planning Initial Assessment Updated by [email or web address]: Myesha Crawford on 05/06/18 1:07 pm * Is the patient Alert and Oriented? Yes * How many steps to enter\exit or inside your home? 4/5 * PCP Dr. Eric Solo in [place] * Pharmacy [facility] * Preadmission Environment Home with Family * ADLs Independent * Equipment None * List name and contact numbers for known caregivers / representatives who currently or will assist patient after discharge: Tierra Bowens [phone] * Verbal permission to speak to the caregivers and representatives has been obtained from the patient. Yes * Community resources currently utilized None * Additional services required to return to the preadmission environment? Yes * Can the patient safely return to the preadmission environment? Yes * Has this patient been hospitalized within the prior 30 days at any hospital? No External Providers External Provider: [facility] Next Contact Date: Service Request Date: Service Type: Resolution: Reviewer: Comments: Coverage Notice Reviewer: [email or web address] Michelle Joanne Denise Notice Issued Date-Time: 05/08/2018 11:07 Notice Type: Patient Choice Letter Notice Delivered To: Patient Relationship to Patient: Self Atmospheric Chemist Name: Delivery Method: HAND - Hand Delivered Lizbeth Days: Prior Verbal Notification: Recipient Understood Notice: Yes Recipient Signature: Yes Med Rec Note Co-signed by Attending: Coverage Notice Comment: PATIENT WANTS TO USE [facility] FOR HH. [facility] CONTACTED AND CM WILL FAX DOCUMENTS. Last DP export: 05/07/18 3:44 Patient Name: BERONICA, RAUL Page 15567 at 1120 All edits/amendments must be made on the electronic document DICTATION DATE: 05/08/181118 OPERATIONS PROCESSOR: ABBEY 05/08/181118 RPT#: [id number] DC DATE: STATUS: ADM IN [facility] [address] [place] [address] END OF REPORT
--- NOTE | ~2018-05-06 | MORECARE ---
CASE MANAGEMENT DISCHARGE SUMMARY PATIENT: RAUL LOCO UNIT: [id number] ADM DATE: 05/06/18 AGE: 82 : 36 SEX: F ROOM/BED: D.2227 AUTHOR: ORLANDO,DOC PHYSICIAN: REFERRING PHYSICIAN: WHITNEY VASQUEZ MD DATE OF SERVICE: 05/07/18 Discharge Plan Patient Name: RAUL LOCO Facility: [facility]:[place] : 1935 Planned Disposition: Home Anticipated Discharge Date: 05/08/18 Discharge Date: Expected LOS: 2 Initial Reviewer: [email or web address] Initial Review Date: 05/06/2018 Generated: 05/07/18 5:44 pm Comments DCP- Discharge Planning Updated by [email or web address]: Berkley Villalba on 05/07/18 3:[address] PHYSICAL THERAPY EVALUATION TODAY. PATIENT OOB W/ MOD TO MAX ASSIST. INITIAL PLAN FOR DISCHARGE TO HOME. PATIENT MAY NEED SOME REHAB VS HOME W/ HOME HEALTH . CM SPOKE WITH DR VASQUEZ REGARDING OT EVAL IN ADDITION TO PHYSICAL THERAPY SHOULD PATIENT REQUIRE REHAB CARE. CM FOLLOWING TO ASSIST WITH DISCHARGE PLANNING. DCP- Discharge Planning Updated by [email or web address]: Myesha Crawford on 05/06/18 12:[address] Patient Name: RAUL LOCO Admission Status: Accout number: [id number] Admission Date: 05-06-2018 : 1935 Admission Diagnosis: Attending: WHITNEY VASQUEZ Current LOS: 1 Anticipated DC Date: 05-08-2018 Planned Disposition: Home Primary Insurance: MEDICARE A & B Discharge Planning Comments: CM met with patient and her to complete initial dc planning assessment. CM educated patient on the CM role and verbal consent given by patient to complete assessment. Patient lives at home with her . She reports she is mostly independent in her care at home prior to fall. At discharge patient plans to return home with her and feels this is a safe discharge. She is unsure at this time what she will need as far as therapy. CM discussed Rehab, op therapy, and home health options. CM will continue to follow and will assist as needed with dc plans/needs. See below for more assessment information. Is the patient Alert and Oriented? Yes * How many steps to enter\exit or inside your home? 4/5 * PCP Dr. Eric Solo in [place] * [facility] * Preadmission Environment Home with Family * ADLs Independent * Equipment None * List name and contact numbers for known caregivers / representatives who currently or will assist patient after discharge: Tierra Martinez [phone] * Verbal permission to speak to the caregivers and representatives has been obtained from the patient. Yes * Community resources currently utilized None * Additional services required to return to the preadmission environment? Yes * Can the patient safely return to the preadmission environment? Yes * Has this patient been hospitalized within the prior 30 days at any hospital? No Audit Specialist: Myesha Crawford RN, [facility] - Discharge Planning Initial Assessment Updated by [email or web address]: Myesha Crawford on 05/06/18 1:07 pm * Is the patient Alert and Oriented? Yes * How many steps to enter\exit or inside your home? 4/5 * PCP Dr. Eric Solo in [place] * [facility] * Preadmission Environment Home with Family * ADLs Independent * Equipment None * List name and contact numbers for known caregivers / representatives who currently or will assist patient after discharge: Tierra Bowens [phone] * Verbal permission to speak to the caregivers and representatives has been obtained from the patient. Yes * Community resources currently utilized None * Additional services required to return to the preadmission environment? Yes * Can the patient safely return to the preadmission environment? Yes * Has this patient been hospitalized within the prior 30 days at any hospital? No Last DP export: 05/06/18 12:20 Patient Name: RAUL LOCO Page [id number] Electronically Signed by [email or web address] on 05/07/18 at 1644 All edits/amendments must be made on the electronic document DICTATION DATE: 05/07/181643 EQUALIZING SAW OPERATOR: ABBEY 05/07/181643 RPT#: [id number] DC DATE: STATUS: ADM IN [facility] [address] [place] [address] END OF REPORT
--- NOTE | ~2018-05-06 | MORECARE ---
CASE MANAGEMENT DISCHARGE SUMMARY PATIENT: RAUL LOCO UNIT: [id number] ADM DATE: 05/06/18 AGE: 82 : 36 SEX: F ROOM/BED: D.2227 AUTHOR: PAUL PERRY PHYSICIAN: REFERRING PHYSICIAN: WHITNEY VASQUEZ MD DATE OF SERVICE: 05/15/18 Discharge Plan Patient Name: RAUL LOCO Facility: [facility]:[place] : 1935 Planned Disposition: Home with Home Health Anticipated Discharge Date: 05/08/18 Discharge Date: 05/09/2018 Expected LOS: 2 Initial Reviewer: [email or web address] Initial Review Date: 05/06/2018 Generated: 05/15/18 9:22 am Comments DCP- Discharge Planning Updated by [email or web address]: Joanne Walker on 05/08/18 3:[address] Patient Name: RAUL LOCO Admission Status: ER Accout number: [id number] Admission Date: 05-06-2018 : 1935 Admission Diagnosis: Attending: WHITNEY VASQUEZ Current LOS: 2 Anticipated DC Date: 05-08-2018 Planned Disposition: SNF [facility] Primary Insurance: MEDICARE A & B Discharge Planning Comments: [facility] TO [facility]SIDE [employer]S[facility] AROUNG 8:15 AM TOMORROW. Clip On Sunglasses Assembler: Joanne Walker DCP- Discharge Planning Updated by [email or web address]: Joanne Walker on 05/08/18 1:[address] Patient Name: RAUL LOCO Admission Status: ER Accout number: [id number] Admission Date: 05-06-2018 : 1935 Admission Diagnosis: Attending: WHITNEY VASQUEZ Current LOS: 2 Anticipated DC Date: 05-08-2018 Planned Disposition: Home with Home Health Primary Insurance: MEDICARE A & B Discharge Planning Comments: CM SPOKE WITH PATIENT AND IWONA MOREIRA ABOUT DC PLANNING. PLAN IS FOR PATIENT TO BE DISCHARGED TOMORROW TO [facility] FOR SNF. JOHN FROM [facility] CONTACTED ME TO TELL ME THE PATIENT HAS BEEN ACCEPTED AND FAX DC SUMMARY AT TIME OF DC. ALSO, [facility] WILL ARRANGE TRANSPORTATION. CALL [facility] TO SET UP TRANSPORT AT [phone]. CM WILL FOLLOW AND ASSIST NEEDED WITH DC PLANNING/NEEDS. Clip On Sunglasses Assembler: Joanne Denise DCP- Discharge Planning Updated by [email or web address]: Joanne Walker on 05/08/18 10:[address] Patient Name: RAUL LOCO Admission Status: ER Accout number: [id number] Admission Date: 05-06-2018 : 1935 Admission Diagnosis: Attending: WHITNEY VASQUEZ Current LOS: 2 Anticipated DC Date: 05-08-2018 Planned Disposition: Home with Home Health Primary Insurance: MEDICARE A & B Discharge Planning Comments: CM SPOKE WITH PATIENT AND SHE WANTS TO USE [facility] FOR HOME HEALTH FOR PT AND NURSING. [facility] CONTACTED AND DOCUMENTS FAXED. CRUZITO AT [facility] STATES JOHN, THE CLINICAL LIAISON, IS ON HER WAY OUT HERE. CM WAITING ON APPROVAL FROM SERVICE. Clip On Sunglasses Assembler: Joanne Walker DCP- Discharge Planning Updated by [email or web address]: Berkley Villalba on 05/07/18 3:[address] PHYSICAL THERAPY EVALUATION TODAY. PATIENT OOB W/ MOD TO MAX ASSIST. INITIAL PLAN FOR DISCHARGE TO HOME. PATIENT MAY NEED SOME REHAB VS HOME W/ HOME HEALTH . CM SPOKE WITH DR VASQUEZ REGARDING OT EVAL IN ADDITION TO PHYSICAL THERAPY SHOULD PATIENT REQUIRE REHAB CARE. CM FOLLOWING TO ASSIST WITH DISCHARGE PLANNING. DCP- Discharge Planning Updated by [email or web address]: Myesha Crawford on 05/06/18 12:[address] Patient Name: RAUL LOCO Admission Status: ER Accout number: [id number] Admission Date: 05-06-2018 : 1935 Admission Diagnosis: Attending: WHITNEY VASQUEZ Current LOS: 1 Anticipated DC Date: 05-08-2018 Planned Disposition: Home Primary Insurance: MEDICARE A & B Discharge Planning Comments: CM met with patient and her to complete initial dc planning assessment. CM educated patient on the CM role and verbal consent given by patient to complete assessment. Patient lives at home with her . She reports she is mostly independent in her care at home prior to fall. At discharge patient plans to return home with her and feels this is a safe discharge. She is unsure at this time what she will need as far as therapy. CM discussed Rehab, op therapy, and home health options. CM will continue to follow and will assist as needed with dc plans/needs. See below for more assessment information. Is the patient Alert and Oriented? Yes * How many steps to enter\exit or inside your home? 4/5 * PCP Dr. Eric Solo in [place] * Pharmacy [facility] * Preadmission Environment Home with Family * ADLs Independent * Equipment None * List name and contact numbers for known caregivers / representatives who currently or will assist patient after discharge: Tierra Bowens [phone] * Verbal permission to speak to the caregivers and representatives has been obtained from the patient. Yes * Community resources currently utilized None * Additional services required to return to the preadmission environment? Yes * Can the patient safely return to the preadmission environment? Yes * Has this patient been hospitalized within the prior 30 days at any hospital? No Clip On Sunglasses Assembler: Myesha Crawford RN, [facility] DCPIA - Discharge Planning Initial Assessment Updated by [id number]: Myesha Crawford on 05/06/18 1:07 pm * Is the patient Alert and Oriented? Yes * How many steps to enter\exit or inside your home? 4/5 * PCP Dr. Eric Solo in [place] * Pharmacy [facility] * Preadmission Environment Home with Family * ADLs Independent * Equipment None * List name and contact numbers for known caregivers / representatives who currently or will assist patient after discharge: Tierra Bowens [phone] * Verbal permission to speak to the caregivers and representatives has been obtained from the patient. Yes * Community resources currently utilized None * Additional services required to return to the preadmission environment? Yes * Can the patient safely return to the preadmission environment? Yes * Has this patient been hospitalized within the prior 30 days at any hospital? No Coverage Notice Reviewer: [email or web address] Michelle Walker Notice Issued Date-Time: 05/08/2018 11:07 Notice Type: Patient Choice Letter Notice Delivered To: Patient Relationship to Patient: Self Trans Router Name: Delivery Method: HAND - Hand Delivered Lizbeth Days: Prior Verbal Notification: Recipient Understood Notice: Yes Recipient Signature: Yes Med Rec Note Co-signed by Attending: Coverage Notice Comment: PATIENT WANTS TO USE [facility] FOR HH. [facility] CONTACTED AND CM WILL FAX DOCUMENTS. Last DP export: 05/08/18 3:22 Patient Name: RAUL LOCO Page [id number] at 0822 All edits/amendments must be made on the electronic document DICTATION DATE: 05/15/18820 HOSPITAL SOCIAL WORKER: ABBEY 05/15/18820 RPT#: [id number] DC DATE:05/09/18 STATUS: DIS IN [facility] [address] [place] [address] END OF REPORT
--- NOTE | ~2018-05-06 | MORECARE ---
CASE MANAGEMENT DISCHARGE SUMMARY PATIENT: RAUL LOCO UNIT: [id number] ADM DATE: 05/06/18 AGE: 82 : 36 SEX: F ROOM/BED: D.2227 AUTHOR: ORLANDO,DOC PHYSICIAN: REFERRING PHYSICIAN: WHITNEY VASQUEZ MD DATE OF SERVICE: 05/08/18 Discharge Plan Patient Name: RAUL LOCO Facility: [facility]:[place] : 1935 Planned Disposition: Home with Home Health Anticipated Discharge Date: 05/08/18 Discharge Date: Expected LOS: 2 Initial Reviewer: [email or web address] Initial Review Date: 05/06/2018 Generated: 05/08/18 12:33 pm Comments DCP- Discharge Planning Updated by [email or web address]: Joanne Walker on 05/08/18 10:[address] Patient Name: RAUL LOCO Admission Status: ER Accout number: [id number] Admission Date: 05-06-2018 : 1935 Admission Diagnosis: Attending: WHITNEY VASQUEZ Current LOS: 2 Anticipated DC Date: 05-08-2018 Planned Disposition: Home with Home Health Primary Insurance: MEDICARE A & B Discharge Planning Comments: CM SPOKE WITH PATIENT AND SHE WANTS TO USE [facility] FOR HOME HEALTH FOR PT AND NURSING. [facility] CONTACTED AND DOCUMENTS FAXED. CRUZITO AT [facility] STATES JOHN, THE CLINICAL LIAISON, IS ON HER WAY OUT HERE. CM WAITING ON APPROVAL FROM SERVICE. Polysomnographic Technician: Joanne Walker DCP- Discharge Planning Updated by [email or web address]: Berkley Villalba on 05/07/18 3:[address] PHYSICAL THERAPY EVALUATION TODAY. PATIENT OOB W/ MOD TO MAX ASSIST. INITIAL PLAN FOR DISCHARGE TO HOME. PATIENT MAY NEED SOME REHAB VS HOME W/ HOME HEALTH . CM SPOKE WITH DR VASQUEZ REGARDING OT EVAL IN ADDITION TO PHYSICAL THERAPY SHOULD PATIENT REQUIRE REHAB CARE. CM FOLLOWING TO ASSIST WITH DISCHARGE PLANNING. DCP- Discharge Planning Updated by [email or web address]: Myesha Crawford on 05/06/18 12:[address] Patient Name: RAUL LOCO Admission Status: ER Accout number: [id number] Admission Date: 05-06-2018 : 1935 Admission Diagnosis: Attending: WHITNEY VASQUEZ Current LOS: 1 Anticipated DC Date: 05-08-2018 Planned Disposition: Home Primary Insurance: MEDICARE A & B Discharge Planning Comments: CM met with patient and her to complete initial dc planning assessment. CM educated patient on the CM role and verbal consent given by patient to complete assessment. Patient lives at home with her . She reports she is mostly independent in her care at home prior to fall. At discharge patient plans to return home with her and feels this is a safe discharge. She is unsure at this time what she will need as far as therapy. CM discussed Rehab, op therapy, and home health options. CM will continue to follow and will assist as needed with dc plans/needs. See below for more assessment information. Is the patient Alert and Oriented? Yes * How many steps to enter\exit or inside your home? 4/5 * PCP Dr. Eric Solo in [place] * Pharmacy [facility] in [place] * Preadmission Environment Home with Family * ADLs Independent * Equipment None * List name and contact numbers for known caregivers / representatives who currently or will assist patient after discharge: Tierra Bowens [phone] * Verbal permission to speak to the caregivers and representatives has been obtained from the patient. Yes * Community resources currently utilized None * Additional services required to return to the preadmission environment? Yes * Can the patient safely return to the preadmission environment? Yes * Has this patient been hospitalized within the prior 30 days at any hospital? No Polysomnographic Technician: Myesha Crawford RN, [facility] DCPIA - Discharge Planning Initial Assessment Updated by [email or web address]: Myesha Crawford on 05/06/18 1:07 pm * Is the patient Alert and Oriented? Yes * How many steps to enter\exit or inside your home? 4/5 * PCP Dr. Eric Solo in [place] * Pharmacy [facility] in [place] * Preadmission Environment Home with Family * ADLs Independent * Equipment None * List name and contact numbers for known caregivers / representatives who currently or will assist patient after discharge: Tierra Bowens - [phone] * Verbal permission to speak to the caregivers and representatives has been obtained from the patient. Yes * Community resources currently utilized None * Additional services required to return to the preadmission environment? Yes * Can the patient safely return to the preadmission environment? Yes * Has this patient been hospitalized within the prior 30 days at any hospital? No Coverage Notice Reviewer: [email or web address] Michelle Walker Notice Issued Date-Time: 05/08/2018 11:07 Notice Type: Patient Choice Letter Notice Delivered To: Patient Relationship to Patient: Self Ssas Developer Name: Delivery Method: HAND - Hand Delivered Lizbeth Days: Prior Verbal Notification: Recipient Understood Notice: Yes Recipient Signature: Yes Med Rec Note Co-signed by Attending: Coverage Notice Comment: PATIENT WANTS TO USE [facility] FOR HH. [facility] CONTACTED AND CM WILL FAX DOCUMENTS. Last DP export: 05/08/18 10:20 Patient Name: RAUL LOCO Page 10968 at 1133 All edits/amendments must be made on the electronic document DICTATION DATE: 05/08/18 113 SPA DIRECTOR/FINANCE: ABBEY 05/08/181132 RPT#: [id number] DC DATE: STATUS: ADM IN [facility] [address] [place] [address] END OF REPORT
--- NOTE | ~2018-05-06 | MORECARE ---
CASE MANAGEMENT DISCHARGE SUMMARY PATIENT: RAUL LOCO UNIT: [id number] ADM DATE: 05/06/18 AGE: 82 : 36 SEX: F ROOM/BED: D.2227 AUTHOR: PAUL PERRY PHYSICIAN: REFERRING PHYSICIAN: WHITNEY VASQUEZ MD DATE OF SERVICE: 05/06/18 Discharge Plan Patient Name: RAUL LOCO [facility] [facility] 1935 Planned Disposition: Home Anticipated Discharge Date: 05/08/18 Discharge Date: Expected LOS: 2 Initial Reviewer: [email or web address] Initial Review Date: 05/06/2018 Generated: 05/06/18 2:07 pm DCPIA - Discharge Planning Initial Assessment Updated by [id number]: Myesha Crawford on 05/06/18 1:07 pm * Is the patient Alert and Oriented? Yes * How many steps to enter\exit or inside your home? 4/5 * PCP Dr. Eric Solo in [place] * Pharmacy [facility] in [place] * Preadmission Environment Home with Family * ADLs Independent * Equipment None * List name and contact numbers for known caregivers / representatives who currently or will assist patient after discharge: Tierra Martinez [facility] - [phone] * Verbal permission to speak to the caregivers and representatives has been obtained from the patient. Yes * Community resources currently utilized None * Additional services required to return to the preadmission environment? Yes * Can the patient safely return to the preadmission environment? Yes * Has this patient been hospitalized within the prior 30 days at any hospital? No Patient Name: RAUL LOCO Page [id number] at 1307 All edits/amendments must be made on the electronic document DICTATION DATE: 05/06/18 1307 HOME TEACHING GRADES 7 AND 8 TEACHER: ABBEY 05/06/18 1307 RPT#: [id number] DC DATE: STATUS: ADM IN [facility] [address] [place] [address] END OF REPORT
--- NOTE | ~2018-05-06 | MORECARE ---
CASE MANAGEMENT DISCHARGE SUMMARY PATIENT: RAUL LOCO UNIT: [id number] ADM DATE: 05/06/18 AGE: 82 : 36 SEX: F ROOM/BED: D.2227 AUTHOR: ORLANDO,DOC PHYSICIAN: REFERRING PHYSICIAN: WHITNEY VASQUEZ MD DATE OF SERVICE: 05/06/18 Discharge Plan Patient Name: RAUL LOCO Facility: [facility]:[place] : 1935 Planned Disposition: Home Anticipated Discharge Date: 05/08/18 Discharge Date: Expected LOS: 2 Initial Reviewer: [id number] Initial Review Date: 05/06/2018 Generated: 05/06/18 2:20 pm DCP- Discharge Planning Updated by [email or web address]: Myesha Crawford on 05/06/18 12:[address] Patient Name: RAUL LOCO Admission Status: ER Accout number: [id number] Admission Date: 05-06-2018 : 1935 Admission Diagnosis: Attending: WHITNEY VASQUEZ Current LOS: 1 Anticipated DC Date: 05-08-2018 Planned Disposition: Home Primary Insurance: MEDICARE A & B Discharge Planning Comments: CM met with patient and her to complete initial dc planning assessment. CM educated patient on the CM role and verbal consent given by patient to complete assessment. Patient lives at home with her . She reports she is mostly independent in her care at home prior to fall. At discharge patient plans to return home with her and feels this is a safe discharge. She is unsure at this time what she will need as far as therapy. CM discussed Rehab, op therapy, and home health options. CM will continue to follow and will assist as needed with dc plans/needs. See below for more assessment information. Is the patient Alert and Oriented? Yes * How many steps to enter\exit or inside your home? 4/5 * PCP Dr. Eric Solo in [place] * Pharmacy [facility] in [place] * Preadmission Environment Home with Family * ADLs Independent * Equipment None * List name and contact numbers for known caregivers / representatives who currently or will assist patient after discharge: Tierra Martinez - [phone] * Verbal permission to speak to the caregivers and representatives has been obtained from the patient. Yes * Community resources currently utilized None * Additional services required to return to the preadmission environment? Yes * Can the patient safely return to the preadmission environment? Yes * Has this patient been hospitalized within the prior 30 days at any hospital? No Senior Landscape Architect: Myesha Crawfrod RN, [facility] DCPIA - Discharge Planning Initial Assessment Updated by [email or web address]: Myesha Crawford on 05/06/18 1:07 pm * Is the patient Alert and Oriented? Yes * How many steps to enter\exit or inside your home? 4/5 * PCP Dr. Eric Solo in [place] * Pharmacy [facility] in [place] * Preadmission Environment Home with Family * ADLs Independent * Equipment None * List name and contact numbers for known caregivers / representatives who currently or will assist patient after discharge: Tierra Martinez [facility] - [phone] * Verbal permission to speak to the caregivers and representatives has been obtained from the patient. Yes * Community resources currently utilized None * Additional services required to return to the preadmission environment? Yes * Can the patient safely return to the preadmission environment? Yes * Has this patient been hospitalized within the prior 30 days at any hospital? No Last DP export: 05/06/18 12:07 Patient Name: RAUL LOCO Page 25974 at 1320 All edits/amendments must be made on the electronic document DICTATION DATE: 05/06/18 1320 DATE NIGHT SITTER: ABBEY 05/06/18 1320 RPT#: [id number] DC DATE: STATUS: ADM IN [facility] [address] [place] [address] END OF REPORT
--- NOTE | ~2018-05-06 | MORECARE ---
CASE MANAGEMENT DISCHARGE SUMMARY PATIENT: RAUL LOCO UNIT: [id number] ADM DATE: 05/06/18 AGE: 82 : 36 SEX: F ROOM/BED: D.2227 AUTHOR: ORLANDO,DOC PHYSICIAN: REFERRING PHYSICIAN: WHITNEY VASQUEZ MD DATE OF SERVICE: 05/08/18 Discharge Plan Patient Name: RAUL LOCO Facility: [facility]:[place] : 1935 Planned Disposition: Home with Home Health Anticipated Discharge Date: 05/08/18 Discharge Date: Expected LOS: 2 Initial Reviewer: [id number] Initial Review Date: 05/06/2018 Generated: 05/08/18 12:26 pm Comments DCP- Discharge Planning Updated by [id number]: Berkley Villalba on 05/07/18 3:[address] PHYSICAL THERAPY EVALUATION TODAY. PATIENT OOB W/ MOD TO MAX ASSIST. INITIAL PLAN FOR DISCHARGE TO HOME. PATIENT MAY NEED SOME REHAB VS HOME W/ HOME HEALTH . CM SPOKE WITH DR VASQUEZ REGARDING OT EVAL IN ADDITION TO PHYSICAL THERAPY SHOULD PATIENT REQUIRE REHAB CARE. CM FOLLOWING TO ASSIST WITH DISCHARGE PLANNING. DCP- Discharge Planning Updated by [email or web address]: Myesha Crawford on 05/06/18 12:[address] Patient Name: RAUL LOCO Admission Status: ER Accout number: [id number] Admission Date: 05-06-2018 : 1935 Admission Diagnosis: Attending: WHITNEY VASQUEZ Current LOS: 1 Anticipated DC Date: 05-08-2018 Planned Disposition: Home Primary Insurance: MEDICARE A & B Discharge Planning Comments: CM met with patient and her to complete initial dc planning assessment. CM educated patient on the CM role and verbal consent given by patient to complete assessment. Patient lives at home with her . She reports she is mostly independent in her care at home prior to fall. At discharge patient plans to return home with her and feels this is a safe discharge. She is unsure at this time what she will need as far as therapy. CM discussed Rehab, op therapy, and home health options. CM will continue to follow and will assist as needed with dc plans/needs. See below for more assessment information. Is the patient Alert and Oriented? Yes * How many steps to enter\exit or inside your home? 4/5 * PCP Dr. Eric Solo in [place] * Pharmacy [facility] [place] 2[facility] * Preadmission Environment Home with Family * ADLs Independent * Equipment None * List name and contact numbers for known caregivers / representatives who currently or will assist patient after discharge: Tierra Bowens [phone] * Verbal permission to speak to the caregivers and representatives has been obtained from the patient. Yes * Community resources currently utilized None * Additional services required to return to the preadmission environment? Yes * Can the patient safely return to the preadmission environment? Yes * Has this patient been hospitalized within the prior 30 days at any hospital? No Equipment Operator/Laborer/Supervisor: Myesha Crawford RN, [facility] DCPIA - Discharge Planning Initial Assessment Updated by [email or web address]: Myesha Crawford on 05/06/18 1:07 pm * Is the patient Alert and Oriented? Yes * How many steps to enter\exit or inside your home? 4/5 * PCP Dr. Eric Solo in [place] * Pharmacy [facility] [place]note 2] * Preadmission Environment Home with Family * ADLs Independent * Equipment None * List name and contact numbers for known caregivers / representatives who currently or will assist patient after discharge: Tierra Bowens [phone] * Verbal permission to speak to the caregivers and representatives has been obtained from the patient. Yes * Community resources currently utilized None * Additional services required to return to the preadmission environment? Yes * Can the patient safely return to the preadmission environment? Yes * Has this patient been hospitalized within the prior 30 days at any hospital? No Coverage Notice Reviewer: [id number] Michelle Walker Notice Issued Date-Time: 05/08/2018 11:07 Notice Type: Patient Choice Letter Notice Delivered To: Patient Relationship to Patient: Self Health Information Assistant Name: Delivery Method: HAND - Hand Delivered Lizbeth Days: Prior Verbal Notification: Recipient Understood Notice: Yes Recipient Signature: Yes Med Rec Note Co-signed by Attending: Coverage Notice Comment: PATIENT WANTS TO USE [facility] FOR HH. [facility] CONTACTED AND CM WILL FAX DOCUMENTS. Last DP export: 05/08/18 10:20 Patient Name: RAUL LOCO Page 56981 at 1126 All edits/amendments must be made on the electronic document DICTATION DATE: 05/08/181125 REFINISH TECHNICIAN: ABBEY 05/08/181125 RPT#: [id number] DC DATE: STATUS: ADM IN [facility] [address] [place] [address] END OF REPORT
--- NOTE | ~2018-05-06 | MORECARE ---
CASE MANAGEMENT DISCHARGE SUMMARY PATIENT: RAUL LOCO UNIT: [id number] ADM DATE: 05/06/18 AGE: 82 : 36 SEX: F ROOM/BED: D.2227 AUTHOR: PAUL PERRY PHYSICIAN: REFERRING PHYSICIAN: WHITNEY VASQUEZ MD DATE OF SERVICE: 05/08/18 Discharge Plan Patient Name: RAUL LOCO Facility: [facility]:[place] : 1935 Planned Disposition: Home with Home Health Anticipated Discharge Date: 05/08/18 Discharge Date: Expected LOS: 2 Initial Reviewer: [id number] Initial Review Date: 05/06/2018 Generated: 05/08/18 3:27 pm Comments DCP- Discharge Planning Updated by [id number]: Joanne Walker on 05/08/18 1:[address] Patient Name: RAUL LOCO Admission Status: ER Accout number: [id number] Admission Date: 05-06-2018 : 1935 Admission Diagnosis: Attending: WHITNEY VASQUEZ Current LOS: 2 Anticipated DC Date: 05-08-2018 Planned Disposition: Home with Home Health Primary Insurance: MEDICARE A & B Discharge Planning Comments: CM SPOKE WITH PATIENT AND IWONA MOREIRA ABOUT DC PLANNING. PLAN IS FOR PATIENT TO BE DISCHARGED TOMORROW TO [facility] FOR SNF. JOHN FROM [facility] CONTACTED ME TO TELL ME THE PATIENT HAS BEEN ACCEPTED AND FAX DC SUMMARY AT TIME OF DC. ALSO, [facility] WILL ARRANGE TRANSPORTATION. CALL [facility] TO SET UP TRANSPORT AT [phone]. CM WILL FOLLOW AND ASSIST NEEDED WITH DC PLANNING/NEEDS. Cost Report Clerk: Joanne Walker DCP- Discharge Planning Updated by [email or web address]: Joanne Walker on 05/08/18 10:[address] Patient Name: RAUL LOCO Admission Status: ER Accout number: [id number] Admission Date: 05-06-2018 : 1935 Admission Diagnosis: Attending: WHITNEY VASQUEZ Current LOS: 2 Anticipated DC Date: 05-08-2018 Planned Disposition: Home with Home Health Primary Insurance: MEDICARE A & B Discharge Planning Comments: CM SPOKE WITH PATIENT AND SHE WANTS TO USE [facility] FOR HOME HEALTH FOR PT AND NURSING. [facility] CONTACTED AND DOCUMENTS FAXED. CRUZITO AT [facility] STATES JOHN, THE CLINICAL LIAISON, IS ON HER WAY OUT HERE. CM WAITING ON APPROVAL FROM SERVICE. Cost Report Clerk: Joannecirilo Walker DCP- Discharge Planning Updated by [id number]: Berkley Villalba on 05/07/18 3:[address] PHYSICAL THERAPY EVALUATION TODAY. PATIENT OOB W/ MOD TO MAX ASSIST. INITIAL PLAN FOR DISCHARGE TO HOME. PATIENT MAY NEED SOME REHAB VS HOME W/ HOME HEALTH . CM SPOKE WITH DR VASQUEZ REGARDING OT EVAL IN ADDITION TO PHYSICAL THERAPY SHOULD PATIENT REQUIRE REHAB CARE. CM FOLLOWING TO ASSIST WITH DISCHARGE PLANNING. DCP- Discharge Planning Updated by [id number]: Myesha Crawford on 05/06/18 12:[address] Patient Name: RAUL LOCO Admission Status: ER Accout number: [id number] Admission Date: 05-06-2018 : 1935 Admission Diagnosis: Attending: WHITNEY VASQUEZ Current LOS: 1 Anticipated DC Date: 05-08-2018 Planned Disposition: Home Primary Insurance: MEDICARE A & B Discharge Planning Comments: CM met with patient and her to complete initial dc planning assessment. CM educated patient on the CM role and verbal consent given by patient to complete assessment. Patient lives at home with her . She reports she is mostly independent in her care at home prior to fall. At discharge patient plans to return home with her and feels this is a safe discharge. She is unsure at this time what she will need as far as therapy. CM discussed Rehab, op therapy, and home health options. CM will continue to follow and will assist as needed with dc plans/needs. See below for more assessment information. Is the patient Alert and Oriented? Yes * How many steps to enter\exit or inside your home? 4/5 * PCP Dr. Eric Solo in [place] * Pharmacy [facility] in [place] * Preadmission Environment Home with Family * ADLs Independent * Equipment None * List name and contact numbers for known caregivers / representatives who currently or will assist patient after discharge: Tierra Bowens - [phone] * Verbal permission to speak to the caregivers and representatives has been obtained from the patient. Yes * Community resources currently utilized None * Additional services required to return to the preadmission environment? Yes * Can the patient safely return to the preadmission environment? Yes * Has this patient been hospitalized within the prior 30 days at any hospital? No Cost Report Clerk: Myesha Crawford RN, [facility] DCPIA - Discharge Planning Initial Assessment Updated by [email or web address]: Myesha Crawford on 05/06/18 1:07 pm * Is the patient Alert and Oriented? Yes * How many steps to enter\exit or inside your home? 4/5 * PCP Dr. Eric Solo in [place] * Pharmacy [facility] in [place] * Preadmission Environment Home with Family * ADLs Independent * Equipment None * List name and contact numbers for known caregivers / representatives who currently or will assist patient after discharge: Tierra Bowens - [phone] * Verbal permission to speak to the caregivers and representatives has been obtained from the patient. Yes * Community resources currently utilized None * Additional services required to return to the preadmission environment? Yes * Can the patient safely return to the preadmission environment? Yes * Has this patient been hospitalized within the prior 30 days at any hospital? No Coverage Notice Reviewer: [id number] Michelle Walker Notice Issued Date-Time: 05/08/2018 11:07 Notice Type: Patient Choice Letter Notice Delivered To: Patient Relationship to Patient: Self Band Aid Machine Operator Name: Delivery Method: HAND - Hand Delivered Lizbeth Days: Prior Verbal Notification: Recipient Understood Notice: Yes Recipient Signature: Yes Med Rec Note Co-signed by Attending: Coverage Notice Comment: PATIENT WANTS TO USE [facility] FOR HH. [facility] CONTACTED AND CM WILL FAX DOCUMENTS. Last DP export: 05/08/18 10:33 Patient Name: RAUL LOCO Page 68354 at 1428 All edits/amendments must be made on the electronic document DICTATION DATE: 05/08/181426 WATER POLLUTION CONTROL TECHNICIAN: ABBEY 05/08/181426 RPT#: [id number] DC DATE: STATUS: ADM IN [facility] [address] [place] [address] END OF REPORT
--- NOTE | ~2018-05-06 | MORECARE ---
CASE MANAGEMENT DISCHARGE SUMMARY PATIENT: RAUL LOCO UNIT: [id number] ADM DATE: 05/06/18 AGE: 82 : 36 SEX: F ROOM/BED: D.2227 AUTHOR: PAUL PERRY PHYSICIAN: REFERRING PHYSICIAN: WHITNEY VASQUEZ MD DATE OF SERVICE: 05/08/18 Discharge Plan Patient Name: RAUL LOCO Facility: [facility]:[place] : 1935 Planned Disposition: Home with Home Health Anticipated Discharge Date: 05/08/18 Discharge Date: Expected LOS: 2 Initial Reviewer: [email or web address] Initial Review Date: 05/06/2018 Generated: 05/08/18 5:21 pm Comments DCP- Discharge Planning Updated by [email or web address]: Joanne Walker on 05/08/18 3:[address] Patient Name: RAUL LOCO Admission Status: ER Accout number: [id number] Admission Date: 05-06-2018 : 1935 Admission Diagnosis: Attending: WHITNEY VASQUEZ Current LOS: 2 Anticipated DC Date: 05-08-2018 Planned Disposition: SNF [facility] Primary Insurance: MEDICARE A & B Discharge Planning Comments: [facility] TO MANAGER TESTING [facility] 8:15 AM TOMORROW. Vp Global: Joanne Walker DCP- Discharge Planning Updated by [id number]: Joanne Walker on 05/08/18 1:[address] Patient Name: RAUL LOCO Admission Status: ER Accout number: [id number] Admission Date: 05-06-2018 : 1935 Admission Diagnosis: Attending: WHITNEY VASQUEZ Current LOS: 2 Anticipated DC Date: 05-08-2018 Planned Disposition: Home with Home Health Primary Insurance: MEDICARE A & B Discharge Planning Comments: CM SPOKE WITH PATIENT AND IWONA MOREIRA ABOUT DC PLANNING. PLAN IS FOR PATIENT TO BE DISCHARGED TOMORROW TO [facility] FOR SNF. JOHN FROM [facility] CONTACTED ME TO TELL ME THE PATIENT HAS BEEN ACCEPTED AND FAX DC SUMMARY AT TIME OF DC. ALSO, [facility] WILL ARRANGE TRANSPORTATION. CALL [facility] TO SET UP TRANSPORT AT [phone]. CM WILL FOLLOW AND ASSIST NEEDED WITH DC PLANNING/NEEDS. Vp Global: Joanne Walker DCP- Discharge Planning Updated by [email or web address]: Joanne Walker on 05/08/18 10:[address] Patient Name: RAUL LOCO Admission Status: ER Accout number: [id number] Admission Date: 05-06-2018 : 1935 Admission Diagnosis: Attending: WHITNEY VASQUEZ Current LOS: 2 Anticipated DC Date: 05-08-2018 Planned Disposition: Home with Home Health Primary Insurance: MEDICARE A & B Discharge Planning Comments: CM SPOKE WITH PATIENT AND SHE WANTS TO USE [facility] FOR HOME HEALTH FOR PT AND NURSING. [facility] CONTACTED AND DOCUMENTS FAXED. CRUZITO AT [facility] STATES JOHN, THE CLINICAL LIAISON, IS ON HER WAY OUT HERE. CM WAITING ON APPROVAL FROM SERVICE. Vp Global: Joanne Walker DCP- Discharge Planning Updated by [id number]: Berkleycirilo Villalba on 05/07/18 3:[address] PHYSICAL THERAPY EVALUATION TODAY. PATIENT OOB W/ MOD TO MAX ASSIST. INITIAL PLAN FOR DISCHARGE TO HOME. PATIENT MAY NEED SOME REHAB VS HOME W/ HOME HEALTH . CM SPOKE WITH DR VASQUEZ REGARDING OT EVAL IN ADDITION TO PHYSICAL THERAPY SHOULD PATIENT REQUIRE REHAB CARE. CM FOLLOWING TO ASSIST WITH DISCHARGE PLANNING. DCP- Discharge Planning Updated by [email or web address]: Myeshacirilo Crawford on 05/06/18 12:[address] Patient Name: RAUL LOCO Admission Status: ER Accout number: [id number] Admission Date: 05-06-2018 : 1935 Admission Diagnosis: Attending: WHITNEY VASQUEZ Current LOS: 1 Anticipated DC Date: 05-08-2018 Planned Disposition: Home Primary Insurance: MEDICARE A & B Discharge Planning Comments: CM met with patient and her to complete initial dc planning assessment. CM educated patient on the CM role and verbal consent given by patient to complete assessment. Patient lives at home with her . She reports she is mostly independent in her care at home prior to fall. At discharge patient plans to return home with her and feels this is a safe discharge. She is unsure at this time what she will need as far as therapy. CM discussed Rehab, op therapy, and home health options. CM will continue to follow and will assist as needed with dc plans/needs. See below for more assessment information. Is the patient Alert and Oriented? Yes * How many steps to enter\exit or inside your home? 4/5 * PCP Dr. Eric Solo in [place] * [facility] * Preadmission Environment Home with Family * ADLs Independent * Equipment None * List name and contact numbers for known caregivers / representatives who currently or will assist patient after discharge: Tierra Bowens [phone] * Verbal permission to speak to the caregivers and representatives has been obtained from the patient. Yes * Community resources currently utilized None * Additional services required to return to the preadmission environment? Yes * Can the patient safely return to the preadmission environment? Yes * Has this patient been hospitalized within the prior 30 days at any hospital? No Vp Global: Myesha Crawford RN, [facility] DCPIA - Discharge Planning Initial Assessment Updated by [email or web address]: Myesha Crawford on 05/06/18 1:07 pm * Is the patient Alert and Oriented? Yes * How many steps to enter\exit or inside your home? 4/5 * PCP Dr. Eric Solo in [place] * Pharmacy [facility] * Preadmission Environment Home with Family * ADLs Independent * Equipment None * List name and contact numbers for known caregivers / representatives who currently or will assist patient after discharge: Tierra Martinez [facility] [phone] * Verbal permission to speak to the caregivers and representatives has been obtained from the patient. Yes * Community resources currently utilized None * Additional services required to return to the preadmission environment? Yes * Can the patient safely return to the preadmission environment? Yes * Has this patient been hospitalized within the prior 30 days at any hospital? No Coverage Notice Reviewer: [id number] Michelle Walker Notice Issued Date-Time: 05/08/2018 11:07 Notice Type: Patient Choice Letter Notice Delivered To: Patient Relationship to Patient: Self Baker Test Name: Delivery Method: HAND - Hand Delivered Lizbeth Days: Prior Verbal Notification: Recipient Understood Notice: Yes Recipient Signature: Yes Med Rec Note Co-signed by Attending: Coverage Notice Comment: PATIENT WANTS TO USE [facility] FOR HH. [facility] CONTACTED AND CM WILL FAX DOCUMENTS. Last DP export: 05/08/18 1:28 Patient Name: RAUL LOCO Page 53475 at 1622 All edits/amendments must be made on the electronic document DICTATION DATE: 05/08/181620 MECHANICAL EQUIPMENT SALES ENGINEER: ABBEY 05/08/181620 RPT#: [id number] DC DATE: STATUS: ADM IN [facility] [address] [place] [address] END OF REPORT
[~2018-05-06 09:37] MED LIST changes: +Aricept PO; +GYNE-LOTRIMIN-745 GM; +IBUPROFEN200 MG PO; +SYNTHROID25 MCG PO
[2018-05-06 11:08] VITALS: BP 142/52
[2018-05-06 11:41] LABS: INR 1.07 (0.85-1.17); PROTIME 13.5 SECONDS (11.6-15.0)
[2018-05-06 11:50] LABS: BASOPHILS 0.6 % (0-2); EOSINOPHILS 1.4 % (0-7); HEMATOCRIT 33.4 % (36.0-48.0); HEMOGLOBIN 11.3 g/dL (12-16); IMMATURE GRANULOCYTES 1.2 % (0-5); LYMPHOCYTES 14.9 % (15-50); MCHC 33.8 g/dL (31.0-37.0); MCV 94.6 fL (80.0-100.0); MONOCYTES 10.3 % (2-11); NEUTROPHILS 71.6 % (40-80); PLATELET COUNT 151 10x3/uL (130-400); RBC 3.53 10x6/uL (4.00-5.40); RDW 14.2 % (11.5-14.5); WBC 4.8 10x3/uL (4.8-10.8)
[2018-05-06 12:12] LABS: ALBUMIN 3.5 g/dL (3.4-5.0); BILIRUBIN - TOTAL 0.43 mg/dL (0.2-1.3); CALCIUM 8.8 mg/dL (8.5-10.1); CARBON DIOXIDE 27.3 mmol/L (21.0-32.0); CREATININE - SERUM 0.9 mg/dL (0.6-1.3); POTASSIUM - SERUM 4.3 mmol/L (3.5-5.1); PROTEIN - SERUM 5.9 g/dL (6.4-8.2)
[2018-05-06 14:10] VITALS: BP 122/60; Ht 162.6 cm; Wt 56.8 kg
[2018-05-06] MEDS ORDERED: PROBIOTIC250 MG PO (16:10)
[2018-05-06] MEDS ORDERED: TRAZODONE HCL100 MG PO (16:12)
[2018-05-06 17:47] VITALS: BP 136/91
[2018-05-06 20:19] VITALS: BP 119/54
[2018-05-06 20:45] LABS: APPEARANCE CLEAR (CLEAR); COLOR YELLOW (YELLOW)
[2018-05-06 20:46] LABS: BILIRUBIN NEGATIVE (NEGATIVE); GLUCOSE NEGATIVE (NEGATIVE); KETONE NEGATIVE (NEGATIVE); NITRITE NEGATIVE (NEGATIVE); PROTEIN TRACE mg/dL (NEGATIVE); RED CELLS - URINE 0-5 /hpf (0-5); UROBILINOGEN NORMAL (NORMAL); WHITE CELLS - URINE NSEEN /hpf (0-5)
[2018-05-07 05:27] VITALS: BP 119/54
[2018-05-07 06:03] LABS: EOSINOPHILS 4.6 % (0-7); HEMATOCRIT 33.1 % (36.0-48.0); IMMATURE GRANULOCYTES 1.9 % (0-5); LYMPHOCYTES 10.2 % (15-50); MCH 31.6 pg (26.0-34.0); MCHC 33.2 g/dL (31.0-37.0); MCV 95.1 fL (80.0-100.0); MEAN PLATELET VOLUME 10.9 fL (7.4-10.4); MONOCYTES 11.9 % (2-11); NEUTROPHILS 70.4 % (40-80); PLATELET COUNT 128 10x3/uL (130-400); RBC 3.48 10x6/uL (4.00-5.40); RDW 14.3 % (11.5-14.5); WBC 4.1 10x3/uL (4.8-10.8)
[2018-05-07 06:47] LABS: ANION GAP 14.5 mmol/L (8-16); POTASSIUM - SERUM 4.5 mmol/L (3.5-5.1)
[2018-05-07] MEDS ORDERED: DONEPEZIL HCL5 M1 PO (06:52)
[2018-05-07] MEDS ORDERED: LISINOPRIL2.5 MG PO (06:56)
[2018-05-07 10:28] VITALS: BP 138/72
[2018-05-07 12:37] VITALS: BP 118/48
[2018-05-07 17:10] VITALS: BP 119/37
[2018-05-07 22:54] VITALS: BP 122/58
[2018-05-08 05:09] VITALS: BP 126/61
[2018-05-08 05:54] LABS: BASOPHILS 0.3 % (0-2); EOSINOPHILS 2.6 % (0-7); HEMATOCRIT 30.3 % (36.0-48.0); HEMOGLOBIN 10.2 g/dL (12-16); IMMATURE GRANULOCYTES 1.9 % (0-5); LYMPHOCYTES 13.9 % (15-50); MCH 31.8 pg (26.0-34.0); MCHC 33.7 g/dL (31.0-37.0); MCV 94.4 fL (80.0-100.0); MEAN PLATELET VOLUME 11.9 fL (7.4-10.4); NEUTROPHILS 69.3 % (40-80); PLATELET COUNT 118 10x3/uL (130-400); RBC 3.21 10x6/uL (4.00-5.40); RDW 14.2 % (11.5-14.5)
[2018-05-08 06:08] LABS: CALCIUM 7.9 mg/dL (8.5-10.1); CARBON DIOXIDE 29.7 mmol/L (21.0-32.0)
[2018-05-08 06:12] LABS: POTASSIUM - SERUM 3.7 mmol/L (3.5-5.1)
[2018-05-08 06:29] LABS: WBC 5.7 10x3/uL (4.8-10.8)
[2018-05-08 08:00] VITALS: BP 152/58
[2018-05-08] MEDS ORDERED: ASPIRIN325 MG PO (11:38)
[2018-05-08] MEDS ORDERED: FLUTICASONE PRO16 GM NASAL (11:39)
[2018-05-08 13:06] VITALS: BP 161/63
[2018-05-08 16:30] VITALS: BP 117/53
[2018-05-08 20:00] VITALS: BP 120/42
[2018-05-09 04:00] VITALS: BP 133/45
[2018-05-09 04:53] LABS: BASOPHILS 0.3 % (0-2); EOSINOPHILS 3.8 % (0-7); HEMATOCRIT 31.3 % (36.0-48.0); HEMOGLOBIN 10.4 g/dL (12-16); IMMATURE GRANULOCYTES 7.7 % (0-5); LYMPHOCYTES 14.8 % (15-50); MCH 31.4 pg (26.0-34.0); MCHC 33.2 g/dL (31.0-37.0); MCV 94.6 fL (80.0-100.0); MEAN PLATELET VOLUME 11.1 fL (7.4-10.4); MONOCYTES 10.5 % (2-11); NEUTROPHILS 62.9 % (40-80); PLATELET COUNT 130 10x3/uL (130-400); RBC 3.31 10x6/uL (4.00-5.40); RDW 14.2 % (11.5-14.5); WBC 6.6 10x3/uL (4.8-10.8)
[2018-05-09 04:56] LABS: ANION GAP 13.3 mmol/L (8-16); BILIRUBIN - TOTAL 0.48 mg/dL (0.2-1.3); CALCIUM 8.5 mg/dL (8.5-10.1); CARBON DIOXIDE 29.1 mmol/L (21.0-32.0); POTASSIUM - SERUM 3.4 mmol/L (3.5-5.1); PROTEIN - SERUM 6.2 g/dL (6.4-8.2)
[2018-05-09 08:33] VITALS: BP 139/58
== END 2018-05-09 10:16 | disposition home health service (06) | DRG 470 ==
LOC: D.ER 09:37 → D.MS 12:29
PROVIDERS: Emergency Medicine; Family Medicine; Internal Medicine Nephrology; Orthopaedic Surgery
PROC: 0SRR0JZ Replacement of Right Hip Joint, Femoral Surface with Synthetic Substitute, Open Approach (ICD-10-PCS; principal; 2018-05-06 17:48)
DX: S72.011A Unspecified intracapsular fracture of right femur, initial encounter for closed fracture (principal); I50.22 Chronic systolic (congestive) heart failure; F02.81 Dementia in other diseases classified elsewhere, unspecified severity, with behavioral disturbance; W01.0XXA Fall on same level from slipping, tripping and stumbling without subsequent striking against object, initial encounter; J44.9 Chronic obstructive pulmonary disease, unspecified; E03.9 Hypothyroidism, unspecified; F41.9 Anxiety disorder, unspecified; D64.9 Anemia, unspecified; M06.9 Rheumatoid arthritis, unspecified; G30.9 Alzheimer's disease, unspecified

== ENCOUNTER 2018-11-01 20:59 | Inpatient (IN) | payer MEDICARE, BC ==
[~2018-11-01] VITALS: Ht 162.6 cm; Wt 61.2 kg
[~2018-11-01 20:59] MED LIST changes: +ASPIRIN325 MG PO; +DONEPEZIL HCL5 M1 PO; +FLUTICASONE PRO16 GM NASAL; +PROBIOTIC250 MG PO; +TRAZODONE HCL100 MG PO
[2018-11-01] MEDS ORDERED: TIROSINT50 MCG PO (23:22)
[2018-11-01] MEDS ORDERED: MELATONIN 3 MG1 TAB PO (23:27)
--- NOTE | 2018-11-02 01:00 | NUR ---
PT RESTING IN BED. ALERT AND ORIENTED. PT HAVING SOME SOB WHILE TALKING AND RESTING IN BED. 2LO2 NASAL CANNULA. SKIN YELLOW IN COLOR. ABD ARMS AND LEGS SWELLING PRESENT. WILL CONTINUE PLAN OF CARE. CALL LIGHT IN REACH. BED LOWERED AND LOCKED. PT STATES NO PROBLEM AT THIS TIME.
[2018-11-02 01:21] VITALS: BP 132/48; BMI 23.2
--- NOTE | 2018-11-02 03:35 | NUR ---
I have reviewed this patient and I concur with the Shift Assessment completed by the Licensed Practical Nurse today this shift.
[2018-11-02 04:00] VITALS: BP 116/54
[2018-11-02 05:01] LABS: ANION GAP 18.1 mmol/L (8-16); CALCIUM 7.9 mg/dL (8.5-10.1); CARBON DIOXIDE 19.3 mmol/L (21.0-32.0); POTASSIUM - SERUM 4.4 mmol/L (3.5-5.1)
[2018-11-02 08:33] VITALS: BP 135/68
[2018-11-02 11:46] VITALS: BP 126/57
[2018-11-02 11:54] LABS: HEMATOCRIT 31.6 % (36.0-48.0); MCH 34.4 pg (26.0-34.0); MCHC 34.8 g/dL (31.0-37.0); MCV 98.8 fL (80.0-100.0); PLATELET COUNT 109 10x3/uL (130-400); RDW 24.4 % (11.5-14.5); WBC 38.3 10x3/uL (4.8-10.8)
[2018-11-02 12:59] VITALS: Ht 162.6 cm; Wt 61.2 kg
[2018-11-02 13:13] LABS: % SATURATION 76 % (15-55); IRON 185 ug/dl (35-150); TOTAL IRON BIND CAPACITY 242 ug/dl (260-445); UNSAT IRON BIND CAPACITY 57 ug/dl (150-375)
[2018-11-02 13:54] LABS: ALBUMIN 2.5 g/dL (3.4-5.0); BILIRUBIN - DIRECT 9.92 mg/dL (0.00-0.30); BILIRUBIN - INDIRECT 2.97 mg/dL (0.00-1.00); BILIRUBIN - TOTAL 12.89 mg/dL (0.2-1.3); PROTEIN - SERUM 4.8 g/dL (6.4-8.2)
[2018-11-02 14:07] LABS: EOSINOPHILS 4 % (0-7); LYMPHOCYTES 66 % (15-50); MONOCYTES 9 % (2-11); NEUTROPHILS 17 % (40-80)
[2018-11-02 14:17] LABS: PLATELET ESTIMATE DECREASED
[2018-11-02 16:52] VITALS: BP 134/712
[2018-11-02 18:08] LABS: APPEARANCE CLEAR (CLEAR); COLOR DK YELLOW (YELLOW); GLUCOSE NEGATIVE (NEGATIVE); KETONE SMALL mg/dL (NEGATIVE); NITRITE NEGATIVE (NEGATIVE); PROTEIN 1+ mg/dL (NEGATIVE)
[2018-11-02 18:09] LABS: BILIRUBIN 3+ (NEGATIVE)
[2018-11-02 18:10] LABS: BACTERIA MODERATE /hpf (NONE SEEN); EPITHELIAL CELLS 0-5 /hpf (0-5); RED CELLS - URINE 0-5 /hpf (0-5); WHITE CELLS - URINE 0-5 /hpf (0-5)
--- NOTE | 2018-11-02 18:53 | NUR ---
I have reviewed this patient and I concur with the Shift Assessment completed by the Licensed Practical Nurse today this shift.
[2018-11-02 19:13] LABS: INR 1.75 (0.85-1.17); PROTIME 19.8 SECONDS (11.6-15.0)
[2018-11-02 21:08] VITALS: BP 138/69
[2018-11-03] VITALS (9 sets, daily range): BP systolic 104–142; BP diastolic 50–77
[2018-11-03 04:55] LABS: ALBUMIN 2.4 g/dL (3.4-5.0); ANION GAP 19.7 mmol/L (8-16); BILIRUBIN - TOTAL 17.26 mg/dL (0.2-1.3); CALCIUM 7.6 mg/dL (8.5-10.1); CARBON DIOXIDE 17.7 mmol/L (21.0-32.0); CREATININE - SERUM 0.9 mg/dL (0.6-1.3); POTASSIUM - SERUM 4.4 mmol/L (3.5-5.1); PROTEIN - SERUM 4.6 g/dL (6.4-8.2)
--- NOTE | 2018-11-03 06:47 | NUR ---
CALLED WITH WITH AMMONIA LEVEL OF 49. NO ORDERS RECEIVED.
[2018-11-03 09:17] LABS: FOLATE (FOLIC ACID) - SERUM 13.7 ng/mL (>3.0)
[2018-11-03 10:58] LABS: HEMATOCRIT 28.7 % (36.0-48.0); HEMOGLOBIN 9.4 g/dL (12-16); MCHC 32.8 g/dL (31.0-37.0); MCV 100.7 fL (80.0-100.0); PLATELET COUNT 80 10x3/uL (130-400); RBC 2.85 10x6/uL (4.00-5.40); RDW 23.4 % (11.5-14.5)
[2018-11-03 15:30] LABS: ANISOCYTOSIS OCC; EOSINOPHILS 1 % (0-7); LYMPHOCYTES 25 % (15-50); MONOCYTES 14 % (2-11); NEUTROPHILS 44 % (40-80); PLATELET ESTIMATE DECREASED; SMUDGE CELLS 2+
[2018-11-03 15:36] LABS: PATH REVIEW PERIPHERAL SMEAR REVIEWED
--- NOTE | 2018-11-03 16:38 | NUR ---
UPON ENTERING PATIENT'S ROOM I NOTED THAT SHE HAD GOTTEN INCREASED PURPLE SPLOTCHINESS ON ARMS, LEGS, TRUNK AND FACE. DENIES ITCHING. STOPPED VIT K INFUSION AND NOTIFIED DR. COMER WHO ADVISED TO STOP VIT K AND OBSERVE PATIENT. WILL CONTINUE TO OBSERVE. COMPANY AT BEDSIDE. ALL NEEDS MET AT THIS TIME.
--- NOTE | 2018-11-03 17:25 | NUR ---
WENT IN TO PATIENT'S ROOM TO ADMINISTER LEVAQUIN AND COREG. PATIENT WAS IN THE BATHROOM ON TOILET WITH SPOUSE AND ARRANGER ASSEMBLER. PATIENT'S DAUGHTER SAID PATIENT WAS NOT ACTING RIGHT. ARRANGER ASSEMBLER STATED THAT SHE HAD STARTE HAVING SLURRED SPEACH. I APPROACHED THE BATHROOM AND WHEN I SAW THE PATIENT SHE WAS UNABLE TO SIT UP. I ASKED BY RADIO FOR SOMEONE TO CALL A RAPID. I GOT NO RESPONSE SO I WENT TO DESK AND CALLED A RAPID RESPONSE. WHILE AT THE DESK I SAW INNA ADAM, CHARGE NURSE COMING OUT OF A PATIENT ROOM. I ASKED HER TO GO TO PATIENT'S ROOM; I WAS CALLING A RAPID RESPONSE. I RETURNED TO PATIENT'S ROOM WHERE RN AND ARRANGER ASSEMBLER WERE TRYING TO GET PATIENT OFF COMMODE BACK TO BED. PATIENT'S DAUGHTER STATED,"SHE JUST WENT OUT." WHEN I VISUALIZED PATIENT SHE HAD TURNED BLUE. HER LIPS WERE BLUE. WE GOT THE PATIENT TO THE BED. RAPID RESPONSE TEAM CAME INTO ROOM AND STATED THE SITUATION WAS NOT A RAPID IT, IT WAS A CODE BLUE. COMPRESSIONS WERE STARTED AND CODE BLUE WAS CALLED.
--- NOTE | 2018-11-03 17:56 | NUR ---
I have reviewed this patient and I concur with the Shift Assessment completed by the Licensed Practical Nurse today this shift.
--- NOTE | 2018-11-03 18:45 | NUR ---
PATIENT AND ROOM WERE CLEANED UP AFTER CODE ENDED. I APPROACHED PATIENT'S FAMILY IN [place] TO TELL THEM THAT PATIENT . PATIENT'S SPOUSE TOLD ME THAT ARRANGEMENTS HAD PREVIOUSLY BEEN ARRANGED WITH [facility] IN [place]. THE FAMILY GATHERED PATIENT'S BELONGINGS. TOOK HER ENGAGEMENT AND [place] RINGS, PURSE, CELL PHONE, CLOTHING AND OTHER BELONGINGS.
--- NOTE | 2018-11-03 19:30 | NUR ---
OPTICAL LAB TECHNICIAN, LINDA, CORONOR, [facility] CALLED. PAPERWORK COMPLETED AND HANDED OFF TO SLIM REYNOLDS, COMMERCIAL CLEANER NURSE.
[2018-11-04 07:26] LABS: HEPATITIS C ANTIBODY <0.1 (0.0-0.9)
[2018-11-04 08:15] LABS: ALPHA FETOPROTEIN -(TUMOR MRK) 1.6 ng/mL (0.0-8.3)
== END 2018-11-03 19:30 | disposition expired | DRG 823 ==
LOC: D.M2 20:59 → D.MS 22:20
PROVIDERS: Internal Medicine Gastroenterology; Specialist; ADMIT Internal Medicine Nephrology; ATTEND Internal Medicine Nephrology
PROC: 0QB23ZX Excision of Right Pelvic Bone, Percutaneous Approach, Diagnostic (ICD-10-PCS; 2018-11-03)
PROC: 07DR3ZZ Extraction of Iliac Bone Marrow, Percutaneous Approach (ICD-10-PCS; principal; 2018-11-03 13:30)
DX: C85.90 Non-Hodgkin lymphoma, unspecified, unspecified site (principal); I50.23 Acute on chronic systolic (congestive) heart failure; J18.9 Pneumonia, unspecified organism; A41.9 Sepsis, unspecified organism; I26.99 Other pulmonary embolism without acute cor pulmonale; J98.11 Atelectasis; D68.9 Coagulation defect, unspecified; E87.1 Hypo-osmolality and hyponatremia; I01.8 Other acute rheumatic heart disease; I11.0 Hypertensive heart disease with heart failure; E03.9 Hypothyroidism, unspecified; D69.6 Thrombocytopenia, unspecified; I08.3 Combined rheumatic disorders of mitral, aortic and tricuspid valves; D64.9 Anemia, unspecified; E55.9 Vitamin D deficiency, unspecified; K76.89 Other specified diseases of liver; I46.8 Cardiac arrest due to other underlying condition